=== PATIENT | female | born 1950 | race Caucasian/White ===

== ENCOUNTER 2016-12-18 11:27 | Emergency (ER) | payer MEDICARE, OTHER ==
[~2016-12-18] VITALS: Ht 170.2 cm; Wt 72.7 kg
[~2016-12-18 11:27] MED LIST: ADV250 IH; ARIP10TA16 PO; ATOR20TA65 PO; DSS100 PO; HYDR25TA PO; LEVO25TA9 PO; LOSA50TA37 PO; METO50 PO; OLAN5TAB27 PO; OMEP20 PO; QUET200T PO; RISP2 PO
[2016-12-18] MEDS ORDERED: CARB200T6 PO (12:05)
[2016-12-18] MEDS ORDERED: PROP10 PO (12:05)
[2016-12-18] MEDS ORDERED: HYDR-4031 PO (12:05)
[2016-12-18] MEDS ORDERED: TRAM50TA4 PO (12:05)
[2016-12-18] MEDS ORDERED: ASPI81 PO (12:11)
[2016-12-18] MEDS ORDERED: DOCU250C91 PO (12:11)
[2016-12-18] MEDS ORDERED: ADV250 IH (12:11)
[2016-12-18] MEDS ORDERED: TIOT185 IH (12:11)
[2016-12-18] MEDS ORDERED: BUPR-93 PO (12:11)
[2016-12-18] MEDS ORDERED: NITROGLYCERIN 2% (1 GM=INCH) PACKET TP ONE (13:00)
[2016-12-18] MEDS ORDERED: ASPIRIN 81 MG CHEWABLE TABLET PO ONE (13:00)
[2016-12-18 13:32] LABS: BASOPHILS % (AUTO) 0.5 % (0.0-2.0); EOSINOPHILS % (AUTO) 5.7 % (1.0-6.0); HEMATOCRIT 42.8 % (36-46); LYMPHOCYTES # (AUTO) 2.8 K/uL (1.0-4.8); LYMPHOCYTES % (AUTO) 30.6 % (22.0-44.0); MEAN CORPUSCULAR HEMOGLOBIN 28.6 pg (26.0-34.0); MEAN CORPUSCULAR HGB CONC 32.7 G/dL (31.0-37.0); MEAN CORPUSCULAR VOLUME 88 fL (80-100); MONOCYTES # (AUTO) 0.7 K/uL (0.1-1.0); MONOCYTES % (AUTO) 8.2 % (2.0-9.0); PLATELET COUNT (AUTO) 236 K/uL (150-450); RED BLOOD CELL COUNT(AUTO) 4.89 MIL/uL (4.00-5.20); RED CELL DISTRIBUTION WIDTH 12.3 % (11.5-14.5)
[2016-12-18 13:39] LABS: CALCIUM, TOTAL 9.2 mg/dL (8.8-10.5); CREATININE 1.41 mg/dL (0.60-1.30)
[2016-12-18 13:45] LABS: ALBUMIN 3.5 g/dL (3.4-5.0); BILIRUBIN,TOTAL 0.2 mg/dL (0.1-1.0)
[2016-12-18] MEDS ORDERED: ALBUTEROL SULFATE 2.5 MG/0.5 ML NEB SOLUTION NEB ONE (14:00)
[2016-12-18] MEDS ORDERED: PredniSONE 20 MG TABLET PO ONE (14:00)
[2016-12-18] MEDS ORDERED: IPRATROPIUM BROMIDE 0.5 MG/2.5 ML NEB SOLUTION NEB ONE (14:00)
[2016-12-18 14:43] VITALS: BP 107/76
== END 2016-12-18 15:09 | disposition home or self-care (01) ==
LOC: EMS 11:33
DX: J44.9 Chronic obstructive pulmonary disease, unspecified (principal); I10 Essential (primary) hypertension; F17.210 Nicotine dependence, cigarettes, uncomplicated; Z79.82 Long term (current) use of aspirin; Z88.1 Allergy status to other antibiotic agents
CPT/HCPCS: 36415; 71010; 80053; 84484; 85025; 93005; 94640; 99285; J7512

== ENCOUNTER 2017-02-03 13:48 | Inpatient (IN) | payer MEDICARE, MEDICAID ==
[~2017-02-03] VITALS: Ht 170.2 cm; Wt 76.6 kg
[~2017-02-03 13:48] MED LIST changes: +ASPI81 PO; +BUPR-93 PO; +CARB200T6 PO; +DOCU250C91 PO; +HYDR-4031 PO; +PROP10 PO; +TIOT185 IH; +TRAM50TA4 PO
[2017-02-03] MEDS ORDERED: QUEtiapine FUMARATE 100 MG TABLET PO PRN (14:30)
[2017-02-03] MEDS ORDERED: HydrOXYzine PAMOATE 50 MG CAPSULE PO PRN (14:30)
[2017-02-03] MEDS ORDERED: MAG HYDROX/AL HYDROX/SIMETH ES 30 ML SUSPENSION UDCUP PO PRN (14:30)
[2017-02-03] MEDS ORDERED: TUBERCULIN, PURIFIED PROTEIN DERIVATIVE 5 TU/0.1 ML SYG ID ONE (14:30)
[2017-02-03] MEDS ORDERED: LORazepam 2 MG TABLET PO PRN (14:30)
[2017-02-03] MEDS ORDERED: PROMETHAZINE HCL 25 MG TABLET PO PRN (14:30)
[2017-02-03] MEDS ORDERED: ACETAMINOPHEN 325 MG TABLET PO PRN (14:30)
[2017-02-03] MEDS ORDERED: MAGNESIUM HYDROXIDE SUSPENSION 30 ML UDCUP PO PRN (14:30)
[2017-02-03] MEDS ORDERED: LOPERAMIDE HCL 2 MG CAPSULE PO PRN (14:30)
[2017-02-03] MEDS ORDERED: GuaiFENesin/D-METHORPHAN [SUGAR-FREE] 200-20MG/10 ML SYRUP UDCUP PO PRN (14:30)
[2017-02-03] MEDS ORDERED: ZOLPIDEM TARTRATE 10 MG TABLET PO PRN (14:30)
[2017-02-03 14:55] VITALS: BP 128/82
[2017-02-03] MEDS: PROPRANOLOL HCL 10 MG TABLET PO SCH ×3 (14:56→17:16)
[2017-02-03] MEDS: THIAMINE HCL 100 MG TABLET PO SCH (16:23)
[2017-02-03 16:29] VITALS: BP 117/90
[2017-02-03] MEDS ORDERED: ALBUTEROL SULFATE HFA 90 MCG/PUFF 8 GM INHALER IH PRN (18:45)
[2017-02-03] MEDS ORDERED: DENTURE ADHESIVE 68 GM CREAM DT PRN (18:45)
[2017-02-03] MEDS: NICOTINE 21 MG/24 HOUR PATCH TD SCH (20:03)
[2017-02-03 20:20] VITALS: BP 106/86
[2017-02-03] MEDS: QUEtiapine FUMARATE 300 MG TABLET PO SCH (20:20)
[2017-02-03] MEDS: TraMADol HCL 50 MG TABLET PO PRN (20:20)
[2017-02-04 04:29] VITALS: BP 107/65
[2017-02-04 08:25] LABS: BASOPHILS # (AUTO) 0.02 K/uL (0.00-0.20); BASOPHILS % (AUTO) 0.4 % (0.0-2.0); EOSINOPHILS # (AUTO) 0.43 K/uL (0.00-0.70); EOSINOPHILS % (AUTO) 7.38 % (1.0-6.0); HEMATOCRIT 42.8 % (36-46); HEMOGLOBIN 14.3 g/dL (12.0-16.0); LYMPHOCYTES # (AUTO) 1.4 K/uL (1.0-4.8); LYMPHOCYTES % (AUTO) 23.1 % (22.0-44.0); MEAN CORPUSCULAR HEMOGLOBIN 29.3 pg (26.0-34.0); MEAN CORPUSCULAR HGB CONC 33.4 G/dL (31.0-37.0); MEAN CORPUSCULAR VOLUME 88 fL (80-100); MONOCYTES # (AUTO) 0.6 K/uL (0.1-1.0); MONOCYTES % (AUTO) 10.4 % (2.0-9.0); NEUTROPHILS # (AUTO) 3.4 K/uL (1.8-7.7); NEUTROPHILS % (AUTO) 58.7 % (40.0-70.0); PLATELET COUNT (AUTO) 209 K/uL (150-450); RED BLOOD CELL COUNT(AUTO) 4.87 MIL/uL (4.00-5.20); RED CELL DISTRIBUTION WIDTH 14.3 % (11.5-14.5); WHITE BLOOD COUNT (AUTO) 5.8 K/uL (4.5-11.0)
[2017-02-04 08:43] LABS: HEMOGLOBIN A1C 5.8 % (4.5-6.2)
[2017-02-04 08:46] LABS: ALBUMIN 3.5 g/dL (3.4-5.0); BILIRUBIN,TOTAL 0.2 mg/dL (0.1-1.0); CALCIUM, TOTAL 9.2 mg/dL (8.8-10.5); CHOL/HDL RATIO 2.7 (3.9-5.7); CREATININE 1.35 mg/dL (0.60-1.30); THYROID STIMULATING HORMONE 4.63 uIU/mL (0.36-3.74); TOTAL PROTEIN, SERUM 7.1 g/dL (6.4-8.2)
[2017-02-04 08:51] VITALS: BP 101/63
[2017-02-04] MEDS: PARoxetine HCL 20 MG TABLET PO SCH (09:40)
[2017-02-04] MEDS: METOPROLOL TARTRATE 50 MG TABLET PO SCH (09:40)
[2017-02-04] MEDS: MULTIVITAMINS WITH MINERALS, THERAPEUTIC TABLET PO SCH (09:40)
[2017-02-04] MEDS: PROPRANOLOL HCL 10 MG TABLET PO SCH ×3 (09:40→17:30)
[2017-02-04] MEDS: OMEPRAZOLE 20 MG CAPSULE PO SCH (09:40)
[2017-02-04] MEDS: DOCUSATE SODIUM 100 MG CAPSULE PO SCH ×2 (09:40→17:30)
[2017-02-04] MEDS: FOLIC ACID 1 MG TABLET PO SCH (09:40)
[2017-02-04] MEDS: FLUTICASONE/VILANTEROL 200-25 MCG/INH INHALER [14] IH SCH ×2 (09:41→17:29)
[2017-02-04] MEDS: THIAMINE HCL 100 MG TABLET PO SCH ×2 (09:47→17:30)
[2017-02-04] MEDS: NICOTINE 21 MG/24 HOUR PATCH TD SCH (09:47)
[2017-02-04] MEDS: TraMADol HCL 50 MG TABLET PO PRN ×2 (09:48→18:39)
[2017-02-04] MEDS: BuPROPion HCL XL 150 MG ER TABLET PO SCH (09:48)
[2017-02-04 16:00] VITALS: BP 112/67
[2017-02-04] MEDS ORDERED: POTASSIUM CHLORIDE 20 MEQ ER TABLET PO ONE (17:45)
[2017-02-04] MEDS: QUEtiapine FUMARATE 25 MG TABLET PO SCH (17:50)
[2017-02-04 18:39] VITALS: BP 116/68
[2017-02-04] MEDS: QUEtiapine FUMARATE 300 MG TABLET PO SCH (21:04)
[2017-02-05 05:47] VITALS: BP 100/56
[2017-02-05 08:15] VITALS: BP 109/62
[2017-02-05] MEDS: NICOTINE 21 MG/24 HOUR PATCH TD SCH (08:22)
[2017-02-05] MEDS: MULTIVITAMINS WITH MINERALS, THERAPEUTIC TABLET PO SCH (08:22)
[2017-02-05] MEDS: PARoxetine HCL 20 MG TABLET PO SCH (08:22)
[2017-02-05] MEDS: QUEtiapine FUMARATE 25 MG TABLET PO SCH ×3 (08:23→16:04)
[2017-02-05] MEDS: THIAMINE HCL 100 MG TABLET PO SCH ×2 (08:23→16:04)
[2017-02-05] MEDS: FOLIC ACID 1 MG TABLET PO SCH (08:23)
[2017-02-05] MEDS: FLUTICASONE/VILANTEROL 200-25 MCG/INH INHALER [14] IH SCH ×2 (08:23→16:05)
[2017-02-05] MEDS: DOCUSATE SODIUM 100 MG CAPSULE PO SCH ×2 (08:23→16:04)
[2017-02-05] MEDS: BuPROPion HCL XL 150 MG ER TABLET PO SCH (08:25)
[2017-02-05] MEDS: PROPRANOLOL HCL 10 MG TABLET PO SCH ×3 (08:25→16:05)
[2017-02-05] MEDS: METOPROLOL TARTRATE 50 MG TABLET PO SCH (08:25)
[2017-02-05] MEDS: OMEPRAZOLE 20 MG CAPSULE PO SCH (08:25)
[2017-02-05] MEDS: TraMADol HCL 50 MG TABLET PO PRN (10:15)
[2017-02-05] MEDS ORDERED: PARO20TA24 PO (11:44)
[2017-02-05] MEDS ORDERED: QUET300T18 PO (11:44)
[2017-02-05] MEDS ORDERED: PROP10 PO (11:44)
[2017-02-05] MEDS ORDERED: BUPR-47 PO (11:44)
[2017-02-05] MEDS ORDERED: QUET25TA34 PO (11:44)
[2017-02-05 13:47] VITALS: BP 126/76
[2017-02-05 16:02] VITALS: BP 112/69
[2017-02-05] MEDS ORDERED: QUEtiapine FUMARATE 200 MG TABLET PO SCH (21:00)
[2017-02-06 00:02] VITALS: BP 108/63
[2017-02-06] MEDS ORDERED: DSS100 PO (08:19)
[2017-02-06] MEDS ORDERED: FLUT1BLS PO (08:19)
[2017-02-06 08:20] VITALS: BP 124/71
[2017-02-06] MEDS: FLUTICASONE/VILANTEROL 200-25 MCG/INH INHALER [14] IH SCH (08:21)
[2017-02-06] MEDS: BuPROPion HCL XL 150 MG ER TABLET PO SCH (08:21)
[2017-02-06] MEDS: FOLIC ACID 1 MG TABLET PO SCH (08:22)
[2017-02-06] MEDS: OMEPRAZOLE 20 MG CAPSULE PO SCH (08:22)
[2017-02-06] MEDS: MULTIVITAMINS WITH MINERALS, THERAPEUTIC TABLET PO SCH (08:22)
[2017-02-06] MEDS: PROPRANOLOL HCL 10 MG TABLET PO SCH (08:22)
[2017-02-06] MEDS: METOPROLOL TARTRATE 50 MG TABLET PO SCH (08:22)
[2017-02-06] MEDS: THIAMINE HCL 100 MG TABLET PO SCH (08:22)
[2017-02-06] MEDS: DOCUSATE SODIUM 100 MG CAPSULE PO SCH (08:22)
[2017-02-06] MEDS: QUEtiapine FUMARATE 25 MG TABLET PO SCH (08:23)
[2017-02-06] MEDS: PARoxetine HCL 20 MG TABLET PO SCH (08:23)
[2017-02-06] MEDS: NICOTINE 21 MG/24 HOUR PATCH TD SCH (08:23)
== END 2017-02-06 10:05 | disposition home or self-care (01) | DRG 885 ==
LOC: B2S 14:52
PROVIDERS: ADMIT Psychiatry & Neurology Psychiatry; ATTEND Psychiatry & Neurology Psychiatry
DX: F25.9 Schizoaffective disorder, unspecified (principal); R45.851 Suicidal ideations; F17.210 Nicotine dependence, cigarettes, uncomplicated; M19.90 Unspecified osteoarthritis, unspecified site; N18.9 Chronic kidney disease, unspecified; I12.9 Hypertensive chronic kidney disease with stage 1 through stage 4 chronic kidney disease, or unspecified chronic kidney disease; K59.00 Constipation, unspecified; K21.9 Gastro-esophageal reflux disease without esophagitis; E78.5 Hyperlipidemia, unspecified; E03.9 Hypothyroidism, unspecified; R45.850 Homicidal ideations; J44.9 Chronic obstructive pulmonary disease, unspecified; E87.6 Hypokalemia; F12.20 Cannabis dependence, uncomplicated; F32.9 Major depressive disorder, single episode, unspecified; Z88.1 Allergy status to other antibiotic agents; Z65.3 Problems related to other legal circumstances; Z91.19 Patient's noncompliance with other medical treatment and regimen
CPT/HCPCS: 83036; 84132; 84439; 84443; 86592; 87081

== ENCOUNTER 2017-03-10 13:57 | Inpatient (IN) | payer MEDICARE, OTHER ==
[~2017-03-10] VITALS: Ht 170.2 cm; Wt 78.4 kg
[~2017-03-10 13:57] MED LIST changes: -ADV250 IH; -ARIP10TA16 PO; -ASPI81 PO; -ATOR20TA65 PO; +BUPR-47 PO; -BUPR-93 PO; -CARB200T6 PO; -DOCU250C91 PO; +FLUT1BLS PO; -HYDR-4031 PO; -HYDR25TA PO; -LEVO25TA9 PO; -LOSA50TA37 PO; -OLAN5TAB27 PO; +PARO20TA24 PO; -QUET200T PO; +QUET25TA34 PO; +QUET300T18 PO; -RISP2 PO; -TIOT185 IH; -TRAM50TA4 PO
[2017-03-10] MEDS ORDERED: FLUT1BLS PO (14:02)
[2017-03-10] MEDS ORDERED: BUPR-93 PO (14:02)
[2017-03-10] MEDS ORDERED: ROPI1TAB11 PO (14:02)
[2017-03-10] MEDS ORDERED: QUET200T PO (14:04)
[2017-03-10] MEDS ORDERED: QUET100T PO (14:04)
[2017-03-10] MEDS ORDERED: CARB100 PO (14:04)
[2017-03-10 14:25] LABS: BASOPHILS % (AUTO) 0.3 % (0.0-2.0); EOSINOPHILS % (AUTO) 7.3 % (1.0-6.0); HEMATOCRIT 39.9 % (36-46); LYMPHOCYTES # (AUTO) 1.8 K/uL (1.0-4.8); LYMPHOCYTES % (AUTO) 21.7 % (22.0-44.0); MEAN CORPUSCULAR HEMOGLOBIN 28.8 pg (26.0-34.0); MEAN CORPUSCULAR HGB CONC 32.5 G/dL (31.0-37.0); MEAN CORPUSCULAR VOLUME 89 fL (80-100); MONOCYTES # (AUTO) 0.6 K/uL (0.1-1.0); MONOCYTES % (AUTO) 7.4 % (2.0-9.0); NEUTROPHILS # (AUTO) 5.2 K/uL (1.8-7.7); NEUTROPHILS % (AUTO) 63.3 % (40.0-70.0); PLATELET COUNT (AUTO) 194 K/uL (150-450); RED CELL DISTRIBUTION WIDTH 13.7 % (11.5-14.5); WHITE BLOOD COUNT (AUTO) 8.2 K/uL (4.5-11.0)
[2017-03-10 14:35] LABS: PROTHROMBIN TIME 10.5 SEC (9.4-11.6)
[2017-03-10 14:40] LABS: ALANINE AMINOTRANSFERASE 30 U/L (12-78); ALBUMIN 3.1 g/dL (3.4-5.0); ANION GAP 10 mmol/L (8-16); ASPARTATE AMINOTRANSFERASE 18 U/L (15-37); BILIRUBIN,TOTAL 0.3 mg/dL (0.1-1.0); CALCIUM, TOTAL 8.5 mg/dL (8.8-10.5); CARBON DIOXIDE 26 mmol/L (22-29); CHLORIDE 104 mmol/L (98-107); CREATINE KINASE, TOTAL 42 U/L (26-192); CREATININE 1.58 mg/dL (0.60-1.30); GLOMERULAR FILTR. RATE CALC 33 mL/min (>60); SODIUM SERUM 140 mmol/L (136-145); TOTAL PROTEIN, SERUM 6.5 g/dL (6.4-8.2); UREA NITROGEN, BLOOD 54 mg/dL (7-18)
[2017-03-10 14:41] LABS: AMMONIA 20 umol/L (11-32)
[2017-03-10 14:42] LABS: POTASSIUM 2.7 mmol/L (3.5-5.1); TROPONIN I < 0.02 ng/mL (0.00-0.05)
[2017-03-10] MEDS ORDERED: POTASSIUM CHLORIDE 20 MEQ ER TABLET PO ONE (14:45)
[2017-03-10] MEDS: POTASSIUM CHL 10 MEQ/WATER 50 ML IV SCH ×2 (14:56→19:20)
[2017-03-10] MEDS ORDERED: SODIUM CHLORIDE 0.9% 1,000 ML IV ONE (15:45)
[2017-03-10] MEDS ORDERED: 0.9% SODIUM CHLORIDE 10 ML SYRINGE IVP PRN (16:45)
[2017-03-10] MEDS ORDERED: ACETAMINOPHEN 325 MG TABLET PO PRN (16:45)
[2017-03-10] MEDS ORDERED: ONDANSETRON HCL 4 MG/2 ML VIAL IVP PRN (16:45)
[2017-03-10 17:45] VITALS: BP 126/64
[2017-03-10] MEDS ORDERED: QUET400T3 PO (17:49)
[2017-03-10 19:24] VITALS: BP 108/57
[2017-03-10] MEDS ORDERED: POTASSIUM CHL 10 MEQ/WATER 50 ML IV ONE (21:00)
[2017-03-10 23:37] VITALS: BP 113/65
[2017-03-11] MEDS ORDERED: MORPHINE SULFATE 2 MG/ML SYRINGE IVP PRN
[2017-03-11] MEDS ORDERED: ONDANSETRON HCL 4 MG/2 ML VIAL IVP PRN
[2017-03-11] MEDS ORDERED: ZOLPIDEM TARTRATE 5 MG TABLET PO PRN
[2017-03-11] MEDS ORDERED: MAGNESIUM HYDROXIDE SUSPENSION 30 ML UDCUP PO PRN
[2017-03-11] MEDS ORDERED: BISACODYL 10 MG RECTAL RECTAL SUPPOSITORY PR PRN
[2017-03-11] MEDS ORDERED: ACETAMINOPHEN 325 MG TABLET PO PRN
[2017-03-11] MEDS ORDERED: HYDROCODONE/ACETAMINOPHEN 5-325 MG TABLET PO PRN
[2017-03-11] MEDS ORDERED: IPRATROPIUM BROMIDE 0.5 MG/2.5 ML NEB SOLUTION NEB PRN
[2017-03-11] MEDS ORDERED: ALBUTEROL SULFATE 2.5 MG/0.5 ML NEB SOLUTION NEB PRN
[2017-03-11] MEDS: HEPARIN SODIUM,PORCINE 5,000 UNITS/ML VIAL SQ SCH ×2 (00:29→09:39)
[2017-03-11] MEDS ORDERED: MAGNESIUM SULFATE 2 GM in DEXTROSE 5%-WATER 50 ML IV PRN (00:30)
[2017-03-11] MEDS ORDERED: MAGNESIUM OXIDE 400 MG TABLET PO PRN (00:30)
[2017-03-11] MEDS ORDERED: POTASSIUM CHL 10 MEQ/WATER 50 ML IV PRN (00:30)
[2017-03-11] MEDS ORDERED: POTASSIUM CHLORIDE 20 MEQ ER TABLET PO PRN (00:30)
[2017-03-11] MEDS ORDERED: MAGNESIUM SULFATE 4 GM/WATER 100 ML IV PRN (00:30)
[2017-03-11 04:17] VITALS: BP 117/66
[2017-03-11 05:26] LABS: APPEARANCE,URINE CLOUDY (CLEAR); GLUCOSE, URINE (UA) NEGATIVE (NEGATIVE); KETONES,URINE NEGATIVE (NEGATIVE); LEUKOCYTE ESTERASE ,URINE TRACE (NEGATIVE); OCCULT BLOOD,URINE NEGATIVE (NEGATIVE); PROTEIN,URINE NEGATIVE (NEGATIVE)
[2017-03-11 05:29] LABS: ADD UA MICROSCOPIC YES
[2017-03-11 05:36] LABS: RBC,URINE 0-2 /HPF (0-2)
[2017-03-11 05:37] LABS: SQUAMOUS EPITHELIAL CELL,UR Few /LPF (None Seen)
[2017-03-11 06:58] LABS: BASOPHILS # (AUTO) 0.02 K/uL (0.00-0.20); BASOPHILS % (AUTO) 0.4 % (0.0-2.0); EOSINOPHILS # (AUTO) 0.51 K/uL (0.00-0.70); EOSINOPHILS % (AUTO) 9.06 % (1.0-6.0); HEMATOCRIT 38.9 % (36-46); HEMOGLOBIN 12.8 g/dL (12.0-16.0); LYMPHOCYTES # (AUTO) 1.5 K/uL (1.0-4.8); MEAN CORPUSCULAR HEMOGLOBIN 29.5 pg (26.0-34.0); MEAN CORPUSCULAR HGB CONC 33.1 G/dL (31.0-37.0); MEAN CORPUSCULAR VOLUME 89 fL (80-100); MONOCYTES # (AUTO) 0.4 K/uL (0.1-1.0); MONOCYTES % (AUTO) 7.4 % (2.0-9.0); NEUTROPHILS # (AUTO) 3.2 K/uL (1.8-7.7); NEUTROPHILS % (AUTO) 57.2 % (40.0-70.0); PLATELET COUNT (AUTO) 162 K/uL (150-450); RED BLOOD CELL COUNT(AUTO) 4.35 MIL/uL (4.00-5.20); WHITE BLOOD COUNT (AUTO) 5.6 K/uL (4.5-11.0)
[2017-03-11 07:40] VITALS: BP 106/75
[2017-03-11 07:45] LABS: BILIRUBIN,TOTAL 0.3 mg/dL (0.1-1.0); CALCIUM, TOTAL 8.7 mg/dL (8.8-10.5); CREATININE 1.34 mg/dL (0.60-1.30); POTASSIUM 4.2 mmol/L (3.5-5.1); TOTAL PROTEIN, SERUM 5.7 g/dL (6.4-8.2)
[2017-03-11] MEDS ORDERED: ROPINIRole HCL 1 MG TABLET PO SCH (09:00)
[2017-03-11] MEDS ORDERED: QUEtiapine FUMARATE 25 MG TABLET PO SCH (09:00)
[2017-03-11] MEDS ORDERED: PARoxetine HCL 20 MG TABLET PO SCH (09:00)
[2017-03-11] MEDS ORDERED: METOPROLOL TARTRATE 50 MG TABLET PO SCH (09:00)
[2017-03-11] MEDS ORDERED: ASPIRIN 81 MG EC TABLET PO SCH (09:00)
[2017-03-11] MEDS ORDERED: PANTOPRAZOLE SODIUM 40 MG/VIAL IVP SCH (09:00)
[2017-03-11] MEDS ORDERED: CarBAMazepine 100 MG CHEWABLE TABLET PO SCH (09:00)
[2017-03-11] MEDS ORDERED: FLUTICASONE/VILANTEROL 200-25 MCG/INH INHALER [14] IH SCH (09:00)
[2017-03-11] MEDS ORDERED: BuPROPion HCL XL 150 MG ER TABLET PO SCH (09:00)
[2017-03-11] MEDS ORDERED: DOCUSATE SODIUM 100 MG CAPSULE PO SCH ×2 (09:00)
[2017-03-11] MEDS ORDERED: OMEPRAZOLE 20 MG CAPSULE PO SCH (09:00)
[2017-03-11] MEDS ORDERED: GADOBUTROL 1 MMOL/ML 10 ML VIAL IVP ONE (09:17)
[2017-03-11 11:33] VITALS: BP 124/78
[2017-03-11 15:10] VITALS: BP 122/76
[2017-03-11] MEDS ORDERED: QUEtiapine FUMARATE 200 MG ER TABLET PO SCH (21:00)
== END 2017-03-11 16:10 | disposition home or self-care (01) | DRG 641 ==
LOC: EMS 14:01 → 5S 16:21
PROVIDERS: ADMIT Hospitalist; ATTEND Hospitalist
DX: E87.6 Hypokalemia (principal); N17.9 Acute kidney failure, unspecified; F25.9 Schizoaffective disorder, unspecified; F31.9 Bipolar disorder, unspecified; E86.0 Dehydration; I10 Essential (primary) hypertension; E03.9 Hypothyroidism, unspecified; F17.210 Nicotine dependence, cigarettes, uncomplicated; J44.9 Chronic obstructive pulmonary disease, unspecified; Z90.49 Acquired absence of other specified parts of digestive tract; Z71.6 Tobacco abuse counseling; Z88.1 Allergy status to other antibiotic agents; Z79.01 Long term (current) use of anticoagulants; Z79.82 Long term (current) use of aspirin
CPT/HCPCS: 51701; 70450; 70544; 70553; 83735; 84100; 84132; 87086; 93005; 93306; 96360; 99285; A9585; C9113; J1644; J3480; J7030

== ENCOUNTER 2017-08-03 11:38 | Inpatient (IN) | payer MEDICARE, MEDICAID ==
[~2017-08-03] VITALS: Ht 170.2 cm; Wt 66.6 kg
[~2017-08-03 11:38] MED LIST changes: -BUPR-47 PO; +BUPR-93 PO; +CARB100 PO; -PARO20TA24 PO; -PROP10 PO; +QUET100T PO; -QUET25TA34 PO; -QUET300T18 PO; +QUET400T3 PO; +ROPI1TAB11 PO
[2017-08-03] MEDS ORDERED: HYDR25TA PO (12:35)
[2017-08-03] MEDS ORDERED: TIOT185 IH (12:35)
[2017-08-03] MEDS ORDERED: ATOR20TA86 PO (12:35)
[2017-08-03] MEDS ORDERED: PARO20TA24 PO (12:35)
[2017-08-03] MEDS ORDERED: VALB40CA PO (12:35)
[2017-08-03] MEDS ORDERED: PROP20 PO (12:35)
[2017-08-03] MEDS ORDERED: LEVO25TA9 PO (12:35)
[2017-08-03] MEDS ORDERED: TRIH2TAB3 PO (12:35)
[2017-08-03] MEDS ORDERED: TRAM50TA4 PO (12:35)
[2017-08-03] MEDS ORDERED: LOSA25TA2 PO (12:35)
[2017-08-03] MEDS ORDERED: ADV250 IH (12:35)
[2017-08-03] MEDS ORDERED: ASPI-1182 PO (12:35)
[2017-08-03] MEDS ORDERED: ACETAMINOPHEN 325 MG TABLET PO PRN ×3 (14:00→22:00)
[2017-08-03] MEDS ORDERED: HydrOXYzine PAMOATE 50 MG CAPSULE PO PRN (14:00)
[2017-08-03] MEDS ORDERED: MAG HYDROX/AL HYDROX/SIMETH ES 30 ML SUSPENSION UDCUP PO PRN (14:00)
[2017-08-03] MEDS ORDERED: MAGNESIUM HYDROXIDE SUSPENSION 30 ML UDCUP PO PRN (14:00)
[2017-08-03] MEDS ORDERED: QUEtiapine FUMARATE 100 MG TABLET PO PRN (14:00)
[2017-08-03] MEDS ORDERED: GuaiFENesin/D-METHORPHAN [SUGAR-FREE] 200-20MG/10 ML SYRUP UDCUP PO PRN (14:00)
[2017-08-03] MEDS ORDERED: ZOLPIDEM TARTRATE 10 MG TABLET PO PRN (14:00)
[2017-08-03] MEDS ORDERED: TUBERCULIN, PURIFIED PROTEIN DERIVATIVE 5 TU/0.1 ML SYG ID ONE (14:00)
[2017-08-03] MEDS ORDERED: LORazepam 2 MG TABLET PO PRN (14:00)
[2017-08-03] MEDS ORDERED: LOPERAMIDE HCL 2 MG CAPSULE PO PRN (14:00)
[2017-08-03 14:15] VITALS: BP 150/91
[2017-08-03] MEDS: PROPRANOLOL HCL 10 MG TABLET PO SCH ×2 (16:02→18:45)
[2017-08-03] MEDS: TRIHEXYPHENIDYL HCL 2 MG TABLET PO SCH (16:03)
[2017-08-03] MEDS: QUEtiapine FUMARATE 25 MG TABLET PO SCH ×2 (16:03→18:45)
[2017-08-03] MEDS: THIAMINE HCL 100 MG TABLET PO SCH (16:03)
[2017-08-03 16:15] VITALS: BP 153/82
[2017-08-03 18:00] VITALS: BP 133/93
[2017-08-03] MEDS ORDERED: IBUPROFEN 400 MG TABLET PO PRN ×2 (21:15→22:00)
[2017-08-03] MEDS: QUEtiapine FUMARATE 200 MG TABLET PO SCH (21:44)
[2017-08-03] MEDS: ROPINIRole HCL 1 MG TABLET PO SCH (21:54)
[2017-08-04 04:57] VITALS: BP 129/78
[2017-08-04] MEDS: LEVOTHYROXINE SODIUM 25 MCG TABLET PO SCH (06:38)
[2017-08-04 08:21] LABS: BASOPHILS % (AUTO) 0.5 % (0.0-2.0); EOSINOPHILS % (AUTO) 12.2 % (1.0-6.0); HEMATOCRIT 34.5 % (36-46); HEMOGLOBIN 11.6 g/dL (12.0-16.0); LYMPHOCYTES # (AUTO) 1.4 K/uL (1.0-4.8); LYMPHOCYTES % (AUTO) 20.8 % (22.0-44.0); MEAN CORPUSCULAR HEMOGLOBIN 30.3 pg (26.0-34.0); MEAN CORPUSCULAR HGB CONC 33.5 G/dL (31.0-37.0); MEAN CORPUSCULAR VOLUME 91 fL (80-100); MONOCYTES # (AUTO) 0.6 K/uL (0.1-1.0); MONOCYTES % (AUTO) 8.1 % (2.0-9.0); NEUTROPHILS % (AUTO) 58.4 % (40.0-70.0); PLATELET COUNT (AUTO) 281 K/uL (150-450); RED BLOOD CELL COUNT(AUTO) 3.81 MIL/uL (4.00-5.20); RED CELL DISTRIBUTION WIDTH 14.2 % (11.5-14.5); WHITE BLOOD COUNT (AUTO) 6.8 K/uL (4.5-11.0)
[2017-08-04 08:24] VITALS: BP 135/74
[2017-08-04 08:43] LABS: HEMOGLOBIN A1C 6.2 % (4.5-6.2)
[2017-08-04 08:55] LABS: ALBUMIN 3.2 g/dL (3.4-5.0); BILIRUBIN,TOTAL 0.4 mg/dL (0.1-1.0); CALCIUM, TOTAL 9.4 mg/dL (8.8-10.5); CHOL/HDL RATIO 2.8 (3.9-5.7); CREATININE 1.52 mg/dL (0.60-1.30); POTASSIUM 3.9 mmol/L (3.5-5.1); THYROID STIMULATING HORMONE 2.29 uIU/mL (0.36-3.74); TOTAL PROTEIN, SERUM 7.1 g/dL (6.4-8.2)
[2017-08-04] MEDS: PROPRANOLOL HCL 10 MG TABLET PO SCH ×3 (09:00→16:46)
[2017-08-04] MEDS: ROPINIRole HCL 1 MG TABLET PO SCH ×3 (09:00→17:00)
[2017-08-04] MEDS ORDERED: VALBENAZINE 40 MG PO SCH (09:00)
[2017-08-04] MEDS: FLUTICASONE/VILANTEROL 200-25 MCG/INH INHALER [14] IH SCH (10:01)
[2017-08-04] MEDS: PROMETHAZINE HCL 25 MG TABLET PO PRN (10:02)
[2017-08-04] MEDS: TRIHEXYPHENIDYL HCL 2 MG TABLET PO SCH ×2 (10:02→16:45)
[2017-08-04] MEDS: ASPIRIN 81 MG EC TABLET PO SCH (10:02)
[2017-08-04] MEDS: BuPROPion HCL XL 150 MG ER TABLET PO SCH (10:02)
[2017-08-04] MEDS: OMEPRAZOLE 20 MG CAPSULE PO SCH (10:02)
[2017-08-04] MEDS: DOCUSATE SODIUM 250 MG CAPSULE PO SCH ×2 (10:03→16:46)
[2017-08-04] MEDS: MULTIVITAMINS WITH MINERALS, THERAPEUTIC TABLET PO SCH (10:03)
[2017-08-04] MEDS: THIAMINE HCL 100 MG TABLET PO SCH ×2 (10:03→16:46)
[2017-08-04] MEDS: PARoxetine HCL 20 MG TABLET PO SCH (10:03)
[2017-08-04] MEDS: LOSARTAN POTASSIUM 50 MG TABLET PO SCH (10:03)
[2017-08-04] MEDS: METOPROLOL TARTRATE 50 MG TABLET PO SCH (10:04)
[2017-08-04] MEDS: ZINC OXIDE 16% PASTE 57 GM TUBE TP SCH ×2 (10:05→16:46)
[2017-08-04] MEDS: FOLIC ACID 1 MG TABLET PO SCH (10:16)
[2017-08-04] MEDS: QUEtiapine FUMARATE 25 MG TABLET PO SCH ×3 (10:16→16:46)
[2017-08-04] MEDS: NALTREXONE HCL 50 MG TABLET PO SCH (12:05)
[2017-08-04] MEDS: INGREZZA 40 MG PO SCH (12:05)
[2017-08-04 16:43] VITALS: BP 102/65
[2017-08-04] MEDS: ATORVASTATIN CALCIUM 20 MG TABLET PO SCH (20:18)
[2017-08-04] MEDS: QUEtiapine FUMARATE 200 MG TABLET PO SCH (20:18)
[2017-08-05 05:30] VITALS: BP 113/60
[2017-08-05] MEDS: LEVOTHYROXINE SODIUM 25 MCG TABLET PO SCH (07:02)
[2017-08-05] MEDS: FLUTICASONE/VILANTEROL 200-25 MCG/INH INHALER [14] IH SCH (08:32)
[2017-08-05] MEDS: NALTREXONE HCL 50 MG TABLET PO SCH (08:33)
[2017-08-05] MEDS: METOPROLOL TARTRATE 50 MG TABLET PO SCH (08:33)
[2017-08-05] MEDS: PARoxetine HCL 20 MG TABLET PO SCH (08:33)
[2017-08-05] MEDS: DOCUSATE SODIUM 250 MG CAPSULE PO SCH ×2 (08:34→16:12)
[2017-08-05] MEDS: FOLIC ACID 1 MG TABLET PO SCH (08:34)
[2017-08-05] MEDS: OMEPRAZOLE 20 MG CAPSULE PO SCH (08:34)
[2017-08-05] MEDS: BuPROPion HCL XL 150 MG ER TABLET PO SCH (08:36)
[2017-08-05] MEDS: ASPIRIN 81 MG EC TABLET PO SCH (08:36)
[2017-08-05] MEDS: TRIHEXYPHENIDYL HCL 2 MG TABLET PO SCH ×2 (08:36→16:10)
[2017-08-05] MEDS: QUEtiapine FUMARATE 25 MG TABLET PO SCH ×3 (08:36→16:10)
[2017-08-05 08:37] VITALS: BP 121/61
[2017-08-05] MEDS: MULTIVITAMINS WITH MINERALS, THERAPEUTIC TABLET PO SCH (08:37)
[2017-08-05] MEDS: LOSARTAN POTASSIUM 50 MG TABLET PO SCH (08:37)
[2017-08-05] MEDS: ROPINIRole HCL 1 MG TABLET PO SCH ×3 (08:37→16:10)
[2017-08-05] MEDS: PROPRANOLOL HCL 10 MG TABLET PO SCH ×3 (08:37→16:10)
[2017-08-05] MEDS: INGREZZA 40 MG PO SCH (08:38)
[2017-08-05] MEDS: THIAMINE HCL 100 MG TABLET PO SCH ×2 (08:41→16:10)
[2017-08-05] MEDS: ZINC OXIDE 16% PASTE 57 GM TUBE TP SCH ×2 (08:43→16:12)
[2017-08-05 16:34] VITALS: BP 121/63
[2017-08-05] MEDS: QUEtiapine FUMARATE 200 MG TABLET PO SCH (20:16)
[2017-08-05] MEDS: ATORVASTATIN CALCIUM 20 MG TABLET PO SCH (20:16)
[2017-08-06 05:20] VITALS: BP 103/63
[2017-08-06] MEDS: LEVOTHYROXINE SODIUM 25 MCG TABLET PO SCH (06:38)
[2017-08-06] MEDS: OMEPRAZOLE 20 MG CAPSULE PO SCH (08:02)
[2017-08-06] MEDS: PROPRANOLOL HCL 10 MG TABLET PO SCH ×3 (08:02→16:48)
[2017-08-06] MEDS: PARoxetine HCL 20 MG TABLET PO SCH (08:02)
[2017-08-06] MEDS: LOSARTAN POTASSIUM 50 MG TABLET PO SCH (08:02)
[2017-08-06] MEDS: MULTIVITAMINS WITH MINERALS, THERAPEUTIC TABLET PO SCH (08:02)
[2017-08-06] MEDS: QUEtiapine FUMARATE 25 MG TABLET PO SCH ×3 (08:02→16:48)
[2017-08-06] MEDS: INGREZZA 40 MG PO SCH (08:02)
[2017-08-06] MEDS: FOLIC ACID 1 MG TABLET PO SCH (08:02)
[2017-08-06] MEDS: THIAMINE HCL 100 MG TABLET PO SCH ×2 (08:02→16:48)
[2017-08-06] MEDS: FLUTICASONE/VILANTEROL 200-25 MCG/INH INHALER [14] IH SCH (08:02)
[2017-08-06] MEDS: ASPIRIN 81 MG EC TABLET PO SCH (08:02)
[2017-08-06] MEDS: DOCUSATE SODIUM 250 MG CAPSULE PO SCH ×2 (08:03→16:48)
[2017-08-06] MEDS: NALTREXONE HCL 50 MG TABLET PO SCH (08:03)
[2017-08-06] MEDS: METOPROLOL TARTRATE 50 MG TABLET PO SCH (08:03)
[2017-08-06] MEDS: TRIHEXYPHENIDYL HCL 2 MG TABLET PO SCH ×2 (08:03→16:48)
[2017-08-06] MEDS: ROPINIRole HCL 1 MG TABLET PO SCH ×3 (08:03→16:48)
[2017-08-06] MEDS: ZINC OXIDE 16% PASTE 57 GM TUBE TP SCH ×2 (08:03→16:49)
[2017-08-06] MEDS: BuPROPion HCL XL 150 MG ER TABLET PO SCH (08:03)
[2017-08-06 08:50] VITALS: BP 116/68
[2017-08-06] MEDS ORDERED: NALT50TA PO (15:16)
[2017-08-06] MEDS ORDERED: QUET25TA34 PO (15:16)
[2017-08-06] MEDS ORDERED: BUPR-47 PO (15:16)
[2017-08-06] MEDS ORDERED: TRIH2TAB3 PO (15:16)
[2017-08-06] MEDS ORDERED: QUET200T29 PO (15:16)
[2017-08-06] MEDS ORDERED: PROP10TA72 PO (15:16)
[2017-08-06] MEDS ORDERED: PARO-37 PO (15:16)
[2017-08-06] MEDS ORDERED: ROPI1TAB38 PO (15:16)
[2017-08-06 16:36] VITALS: BP 108/61
[2017-08-06] MEDS: ATORVASTATIN CALCIUM 20 MG TABLET PO SCH (20:27)
[2017-08-06] MEDS: QUEtiapine FUMARATE 200 MG TABLET PO SCH (20:28)
[2017-08-07 05:34] VITALS: BP 119/68
[2017-08-07] MEDS: LEVOTHYROXINE SODIUM 25 MCG TABLET PO SCH (06:20)
[2017-08-07] MEDS: FLUTICASONE/VILANTEROL 200-25 MCG/INH INHALER [14] IH SCH (08:15)
[2017-08-07 08:18] VITALS: BP 120/66
[2017-08-07] MEDS: ROPINIRole HCL 1 MG TABLET PO SCH ×3 (08:18→16:04)
[2017-08-07] MEDS: QUEtiapine FUMARATE 25 MG TABLET PO SCH ×3 (08:18→16:04)
[2017-08-07] MEDS: DOCUSATE SODIUM 250 MG CAPSULE PO SCH ×2 (08:18→16:04)
[2017-08-07] MEDS: METOPROLOL TARTRATE 50 MG TABLET PO SCH (08:18)
[2017-08-07] MEDS: TRIHEXYPHENIDYL HCL 2 MG TABLET PO SCH ×2 (08:18→16:04)
[2017-08-07] MEDS: ASPIRIN 81 MG EC TABLET PO SCH (08:19)
[2017-08-07] MEDS: PARoxetine HCL 20 MG TABLET PO SCH (08:19)
[2017-08-07] MEDS: MULTIVITAMINS WITH MINERALS, THERAPEUTIC TABLET PO SCH (08:19)
[2017-08-07] MEDS: LOSARTAN POTASSIUM 50 MG TABLET PO SCH (08:20)
[2017-08-07] MEDS: INGREZZA 40 MG PO SCH (08:20)
[2017-08-07] MEDS: FOLIC ACID 1 MG TABLET PO SCH (08:20)
[2017-08-07] MEDS: THIAMINE HCL 100 MG TABLET PO SCH ×2 (08:20→16:04)
[2017-08-07] MEDS: BuPROPion HCL XL 150 MG ER TABLET PO SCH (08:20)
[2017-08-07] MEDS: OMEPRAZOLE 20 MG CAPSULE PO SCH (08:20)
[2017-08-07] MEDS: NALTREXONE HCL 50 MG TABLET PO SCH (08:20)
[2017-08-07] MEDS: ZINC OXIDE 16% PASTE 57 GM TUBE TP SCH ×2 (08:21→16:04)
[2017-08-07] MEDS: PROPRANOLOL HCL 10 MG TABLET PO SCH ×3 (08:26→17:00)
[2017-08-07] MEDS ORDERED: QUET25TA PO (09:42)
[2017-08-07] MEDS ORDERED: FLUT1BLS IH (09:42)
[2017-08-07] MEDS ORDERED: THIA100 PO (09:42)
[2017-08-07] MEDS ORDERED: FOLI1 PO (09:42)
[2017-08-07] MEDS ORDERED: MULT-248 PO (09:42)
[2017-08-07] MEDS ORDERED: QUET200T PO (09:42)
[2017-08-07] MEDS ORDERED: NALT50TA6 PO (09:42)
[2017-08-07 16:39] VITALS: BP 100/61
[2017-08-07] MEDS: QUEtiapine FUMARATE 200 MG TABLET PO SCH (20:06)
[2017-08-07] MEDS: ATORVASTATIN CALCIUM 20 MG TABLET PO SCH (20:07)
[2017-08-08 01:51] VITALS: BP 105/67
[2017-08-08] MEDS: LEVOTHYROXINE SODIUM 25 MCG TABLET PO SCH (06:19)
[2017-08-08 08:51] VITALS: BP 108/60
[2017-08-08] MEDS: TRIHEXYPHENIDYL HCL 2 MG TABLET PO SCH ×2 (08:52→16:15)
[2017-08-08] MEDS: THIAMINE HCL 100 MG TABLET PO SCH ×2 (08:53→16:18)
[2017-08-08] MEDS: MULTIVITAMINS WITH MINERALS, THERAPEUTIC TABLET PO SCH (08:53)
[2017-08-08] MEDS: FOLIC ACID 1 MG TABLET PO SCH (08:53)
[2017-08-08] MEDS: QUEtiapine FUMARATE 25 MG TABLET PO SCH ×3 (08:53→16:15)
[2017-08-08] MEDS: PARoxetine HCL 20 MG TABLET PO SCH (08:53)
[2017-08-08] MEDS: DOCUSATE SODIUM 250 MG CAPSULE PO SCH ×2 (08:53→16:15)
[2017-08-08] MEDS: BuPROPion HCL XL 150 MG ER TABLET PO SCH (08:53)
[2017-08-08] MEDS: LOSARTAN POTASSIUM 50 MG TABLET PO SCH (08:54)
[2017-08-08] MEDS: METOPROLOL TARTRATE 50 MG TABLET PO SCH (08:54)
[2017-08-08] MEDS: ROPINIRole HCL 1 MG TABLET PO SCH ×3 (08:54→16:15)
[2017-08-08] MEDS: FLUTICASONE/VILANTEROL 200-25 MCG/INH INHALER [14] IH SCH (08:57)
[2017-08-08] MEDS: OMEPRAZOLE 20 MG CAPSULE PO SCH (08:57)
[2017-08-08] MEDS: PROPRANOLOL HCL 10 MG TABLET PO SCH ×3 (09:02→17:00)
[2017-08-08] MEDS: NALTREXONE HCL 50 MG TABLET PO SCH (09:02)
[2017-08-08] MEDS: ZINC OXIDE 16% PASTE 57 GM TUBE TP SCH ×2 (09:03→16:18)
[2017-08-08] MEDS: INGREZZA 40 MG PO SCH (09:03)
[2017-08-08] MEDS: ASPIRIN 81 MG EC TABLET PO SCH (09:44)
[2017-08-08 16:18] VITALS: BP 101/60
[2017-08-08 17:30] VITALS: BP 109/60
[2017-08-08] MEDS: QUEtiapine FUMARATE 200 MG TABLET PO SCH (20:14)
[2017-08-08] MEDS: ATORVASTATIN CALCIUM 20 MG TABLET PO SCH (20:14)
[2017-08-09 00:13] VITALS: BP 121/75
[2017-08-09] MEDS: LEVOTHYROXINE SODIUM 25 MCG TABLET PO SCH (05:53)
[2017-08-09 07:43] LABS: CALCIUM, TOTAL 9.2 mg/dL (8.8-10.5); CREATININE 1.59 mg/dL (0.60-1.30)
[2017-08-09 08:37] VITALS: BP 117/60
[2017-08-09] MEDS: LOSARTAN POTASSIUM 50 MG TABLET PO SCH (09:09)
[2017-08-09] MEDS: ASPIRIN 81 MG EC TABLET PO SCH (09:10)
[2017-08-09] MEDS: TRIHEXYPHENIDYL HCL 2 MG TABLET PO SCH ×2 (09:10→17:19)
[2017-08-09] MEDS: OMEPRAZOLE 20 MG CAPSULE PO SCH (09:10)
[2017-08-09] MEDS: DOCUSATE SODIUM 250 MG CAPSULE PO SCH ×2 (09:10→17:19)
[2017-08-09] MEDS: ROPINIRole HCL 1 MG TABLET PO SCH ×3 (09:10→17:20)
[2017-08-09] MEDS: PARoxetine HCL 20 MG TABLET PO SCH (09:10)
[2017-08-09] MEDS: FOLIC ACID 1 MG TABLET PO SCH (09:10)
[2017-08-09] MEDS: THIAMINE HCL 100 MG TABLET PO SCH ×2 (09:11→17:19)
[2017-08-09] MEDS: PROPRANOLOL HCL 10 MG TABLET PO SCH ×3 (09:11→17:19)
[2017-08-09] MEDS: NALTREXONE HCL 50 MG TABLET PO SCH (09:11)
[2017-08-09] MEDS: QUEtiapine FUMARATE 25 MG TABLET PO SCH ×3 (09:11→17:19)
[2017-08-09] MEDS: MULTIVITAMINS WITH MINERALS, THERAPEUTIC TABLET PO SCH (09:11)
[2017-08-09] MEDS: METOPROLOL TARTRATE 50 MG TABLET PO SCH (09:11)
[2017-08-09] MEDS: BuPROPion HCL XL 150 MG ER TABLET PO SCH (09:12)
[2017-08-09] MEDS: FLUTICASONE/VILANTEROL 200-25 MCG/INH INHALER [14] IH SCH (09:13)
[2017-08-09] MEDS: INGREZZA 40 MG PO SCH (09:13)
[2017-08-09] MEDS: ZINC OXIDE 16% PASTE 57 GM TUBE TP SCH ×2 (09:14→17:20)
[2017-08-09 16:26] VITALS: BP 104/62
[2017-08-09] MEDS: QUEtiapine FUMARATE 200 MG TABLET PO SCH (20:51)
[2017-08-09] MEDS: ATORVASTATIN CALCIUM 20 MG TABLET PO SCH (20:51)
[2017-08-10 04:48] VITALS: BP 117/72
[2017-08-10] MEDS: LEVOTHYROXINE SODIUM 25 MCG TABLET PO SCH (06:38)
[2017-08-10 08:19] VITALS: BP 110/71
[2017-08-10] MEDS ORDERED: NICOTINE 21 MG/24 HOUR PATCH TD SCH (09:00)
[2017-08-10] MEDS: INGREZZA 40 MG PO SCH (09:16)
[2017-08-10] MEDS: LOSARTAN POTASSIUM 50 MG TABLET PO SCH (09:17)
[2017-08-10] MEDS: FLUTICASONE/VILANTEROL 200-25 MCG/INH INHALER [14] IH SCH (09:17)
[2017-08-10] MEDS: ROPINIRole HCL 1 MG TABLET PO SCH ×2 (09:17→12:37)
[2017-08-10] MEDS: METOPROLOL TARTRATE 50 MG TABLET PO SCH (09:17)
[2017-08-10] MEDS: QUEtiapine FUMARATE 25 MG TABLET PO SCH ×2 (09:18→12:37)
[2017-08-10] MEDS: PARoxetine HCL 20 MG TABLET PO SCH (09:18)
[2017-08-10] MEDS: ASPIRIN 81 MG EC TABLET PO SCH (09:19)
[2017-08-10] MEDS: FOLIC ACID 1 MG TABLET PO SCH (09:19)
[2017-08-10] MEDS: TRIHEXYPHENIDYL HCL 2 MG TABLET PO SCH (09:19)
[2017-08-10] MEDS: PROMETHAZINE HCL 25 MG TABLET PO PRN (09:19)
[2017-08-10] MEDS: DOCUSATE SODIUM 250 MG CAPSULE PO SCH (09:19)
[2017-08-10] MEDS: BuPROPion HCL XL 150 MG ER TABLET PO SCH (09:19)
[2017-08-10] MEDS: OMEPRAZOLE 20 MG CAPSULE PO SCH (09:19)
[2017-08-10] MEDS: MULTIVITAMINS WITH MINERALS, THERAPEUTIC TABLET PO SCH (09:20)
[2017-08-10] MEDS: THIAMINE HCL 100 MG TABLET PO SCH (09:20)
[2017-08-10] MEDS: ZINC OXIDE 16% PASTE 57 GM TUBE TP SCH (09:20)
[2017-08-10] MEDS: NALTREXONE HCL 50 MG TABLET PO SCH (09:47)
[2017-08-10] MEDS: PROPRANOLOL HCL 10 MG TABLET PO SCH ×2 (09:48→12:37)
== END 2017-08-10 13:20 | disposition home or self-care (01) | DRG 885 ==
LOC: B2S 14:08
PROVIDERS: ADMIT Psychiatry & Neurology Psychiatry; ATTEND Psychiatry & Neurology Psychiatry
DX: F25.9 Schizoaffective disorder, unspecified (principal); R45.851 Suicidal ideations; J44.9 Chronic obstructive pulmonary disease, unspecified; Z91.19 Patient's noncompliance with other medical treatment and regimen; D64.9 Anemia, unspecified; I12.9 Hypertensive chronic kidney disease with stage 1 through stage 4 chronic kidney disease, or unspecified chronic kidney disease; K31.9 Disease of stomach and duodenum, unspecified; M19.90 Unspecified osteoarthritis, unspecified site; N18.9 Chronic kidney disease, unspecified; F14.10 Cocaine abuse, uncomplicated; E03.9 Hypothyroidism, unspecified; F17.210 Nicotine dependence, cigarettes, uncomplicated; E78.5 Hyperlipidemia, unspecified; K21.9 Gastro-esophageal reflux disease without esophagitis; K59.09 Other constipation; Z59.9 Problem related to housing and economic circumstances, unspecified; Z65.3 Problems related to other legal circumstances; Z63.9 Problem related to primary support group, unspecified; Z88.1 Allergy status to other antibiotic agents
CPT/HCPCS: 83036; 84439; 84443; 86592

== ENCOUNTER 2017-09-23 15:28 | Inpatient (IN) | payer MEDICARE, MEDICAID ==
[~2017-09-23] VITALS: Ht 162.6 cm; Wt 68.5 kg
[~2017-09-23 15:28] MED LIST changes: +ASPI-1182 PO; +ATOR20TA86 PO; +BUPR-47 PO; -BUPR-93 PO; -CARB100 PO; +FLUT1BLS IH; -FLUT1BLS PO; +FOLI1 PO; +LEVO25TA9 PO; +MULT-248 PO; +NALT50TA PO; +PARO-37 PO; +PROP10TA72 PO; -QUET100T PO; +QUET200T29 PO; +QUET25TA34 PO; -QUET400T3 PO; -ROPI1TAB11 PO; +ROPI1TAB38 PO; +THIA100 PO; +TRIH2TAB3 PO
[2017-09-23 17:03] LABS: BASOPHILS # (AUTO) 0.03 K/uL (0.00-0.20); BASOPHILS % (AUTO) 0.3 % (0.0-2.0); EOSINOPHILS % (AUTO) 7.52 % (1.0-6.0); HEMATOCRIT 37.9 % (36-46); HEMOGLOBIN 11.9 g/dL (12.0-16.0); LYMPHOCYTES % (AUTO) 21.2 % (22.0-44.0); MEAN CORPUSCULAR HEMOGLOBIN 28.3 pg (26.0-34.0); MEAN CORPUSCULAR HGB CONC 31.4 G/dL (31.0-37.0); MEAN CORPUSCULAR VOLUME 90 fL (80-100); MONOCYTES # (AUTO) 0.7 K/uL (0.1-1.0); MONOCYTES % (AUTO) 7.3 % (2.0-9.0); NEUTROPHILS # (AUTO) 5.9 K/uL (1.8-7.7); NEUTROPHILS % (AUTO) 63.7 % (40.0-70.0); PLATELET COUNT (AUTO) 299 K/uL (150-450); RED CELL DISTRIBUTION WIDTH 14.9 % (11.5-14.5); WHITE BLOOD COUNT (AUTO) 9.3 K/uL (4.5-11.0)
[2017-09-23 17:16] LABS: ANION GAP 10 mmol/L (8-16); CALCIUM, TOTAL 9.4 mg/dL (8.8-10.5); CARBON DIOXIDE 23 mmol/L (22-29); CHLORIDE 103 mmol/L (98-107); CREATININE 1.42 mg/dL (0.60-1.30); GLOMERULAR FILTR. RATE CALC 37 mL/min (>60); SODIUM SERUM 136 mmol/L (136-145); UREA NITROGEN, BLOOD 18 mg/dL (7-18)
[2017-09-23 17:30] LABS: ALANINE AMINOTRANSFERASE 30 U/L (12-78); ALBUMIN 3.5 g/dL (3.4-5.0); ASPARTATE AMINOTRANSFERASE 26 U/L (15-37); BILIRUBIN,TOTAL 0.3 mg/dL (0.1-1.0); THYROID STIMULATING HORMONE 4.78 uIU/mL (0.36-3.74); TOTAL PROTEIN, SERUM 6.8 g/dL (6.4-8.2)
[2017-09-23] MEDS ORDERED: HALOPERIDOL 5 MG TABLET PO PRN (18:45)
[2017-09-23] MEDS ORDERED: ZOLPIDEM TARTRATE 10 MG TABLET PO PRN (18:45)
[2017-09-23 19:56] VITALS: BP 137/75
[2017-09-23 20:01] VITALS: BP 137/75
[2017-09-23] MEDS ORDERED: INFLUENZA VIRUS VACCINE QVS 2017-18 (3YR+)/PF 60 MCG/0.5 ML SYRINGE IM ONE (20:15)
[2017-09-23] MEDS ORDERED: PNEUMOCOCCAL VACCINE POLYVALENT 0.5 ML VIAL [PPSV23] IM ONE (20:15)
[2017-09-23] MEDS: ATORVASTATIN CALCIUM 20 MG TABLET PO SCH (21:05)
[2017-09-23] MEDS: LORazepam 2 MG TABLET PO PRN (21:05)
[2017-09-23] MEDS ORDERED: ACETAMINOPHEN 325 MG TABLET PO PRN (21:30)
[2017-09-23] MEDS ORDERED: IBUPROFEN 400 MG TABLET PO PRN (21:30)
[2017-09-24 02:34] VITALS: BP 135/88
[2017-09-24] MEDS: LEVOTHYROXINE SODIUM 25 MCG TABLET PO SCH (06:55)
[2017-09-24] MEDS: OMEPRAZOLE 20 MG CAPSULE PO SCH (08:34)
[2017-09-24] MEDS: ASPIRIN 81 MG CHEWABLE TABLET PO SCH (08:34)
[2017-09-24] MEDS: THIAMINE HCL 100 MG TABLET PO SCH ×2 (08:34→16:09)
[2017-09-24] MEDS: FOLIC ACID 1 MG TABLET PO SCH (08:35)
[2017-09-24] MEDS: DOCUSATE SODIUM 250 MG CAPSULE PO SCH ×2 (08:35→16:09)
[2017-09-24] MEDS: METOPROLOL TARTRATE 50 MG TABLET PO SCH (08:35)
[2017-09-24 08:43] VITALS: BP 126/81
[2017-09-24 08:50] LABS: CHOL/HDL RATIO 2.8 (3.9-5.7)
[2017-09-24] MEDS ORDERED: THIAMINE HCL 100 MG/ML 2ML VIAL IM SCH (09:00)
[2017-09-24] MEDS ORDERED: FOLIC ACID 1 MG TABLET PO SCH (09:00)
[2017-09-24] MEDS ORDERED: DOCUSATE SODIUM 100 MG CAPSULE PO SCH (09:00)
[2017-09-24] MEDS: FLUTICASONE/VILANTEROL 200-25 MCG/INH INHALER [14] IH SCH (09:00)
[2017-09-24] MEDS ORDERED: FLUTICASONE/VILANTEROL 200-25 MCG/INH INHALER [14] IH SCH (09:00)
[2017-09-24] MEDS ORDERED: BuPROPion HCL XL 150 MG ER TABLET PO SCH (11:30)
[2017-09-24] MEDS: PARoxetine HCL 20 MG TABLET PO SCH (11:42)
[2017-09-24] MEDS: HYDROCHLOROTHIAZIDE 25 MG TABLET PO SCH (11:42)
[2017-09-24] MEDS ORDERED: NALT50TA PO (14:43)
[2017-09-24] MEDS ORDERED: BUPR-47 PO (14:43)
[2017-09-24] MEDS ORDERED: ROPI1TAB38 PO (14:43)
[2017-09-24] MEDS ORDERED: PARO-37 PO (14:43)
[2017-09-24] MEDS ORDERED: QUET200T29 PO (14:43)
[2017-09-24] MEDS ORDERED: PROP20 PO (14:43)
[2017-09-24] MEDS ORDERED: QUET25TA34 PO (14:43)
[2017-09-24] MEDS ORDERED: QUEtiapine FUMARATE 100 MG TABLET PO PRN (14:45)
[2017-09-24] MEDS ORDERED: LOPERAMIDE HCL 2 MG CAPSULE PO PRN ×2 (14:45)
[2017-09-24] MEDS ORDERED: PROMETHAZINE HCL 25 MG TABLET PO PRN (14:45)
[2017-09-24] MEDS ORDERED: HydrOXYzine PAMOATE 50 MG CAPSULE PO PRN (14:45)
[2017-09-24] MEDS ORDERED: GuaiFENesin/D-METHORPHAN [SUGAR-FREE] 200-20MG/10 ML SYRUP UDCUP PO PRN (14:45)
[2017-09-24] MEDS ORDERED: MAG HYDROX/AL HYDROX/SIMETH ES 30 ML SUSPENSION UDCUP PO PRN (14:45)
[2017-09-24] MEDS ORDERED: MAGNESIUM HYDROXIDE SUSPENSION 30 ML UDCUP PO PRN (14:45)
[2017-09-24] MEDS ORDERED: ACETAMINOPHEN 325 MG TABLET PO PRN (14:45)
[2017-09-24] MEDS: TIOTROPIUM BROMIDE 18 MCG/INH HANDIHALER [5] IH SCH (16:08)
[2017-09-24 16:09] VITALS: BP 130/78
[2017-09-24] MEDS: LORazepam 2 MG TABLET PO PRN (16:09)
[2017-09-24] MEDS: ROPINIRole HCL 1 MG TABLET PO SCH (16:09)
[2017-09-24] MEDS: LOSARTAN POTASSIUM 50 MG TABLET PO SCH (16:09)
[2017-09-24] MEDS ORDERED: PROPRANOLOL HCL 20 MG TABLET PO SCH (17:00)
[2017-09-24] MEDS: ATORVASTATIN CALCIUM 20 MG TABLET PO SCH (20:05)
[2017-09-24] MEDS ORDERED: QUEtiapine FUMARATE 200 MG TABLET PO SCH (21:00)
[2017-09-24] MEDS ORDERED: QUEtiapine FUMARATE 25 MG TABLET PO SCH (21:00)
[2017-09-25 06:07] VITALS: BP 120/74
[2017-09-25] MEDS: LEVOTHYROXINE SODIUM 25 MCG TABLET PO SCH (06:36)
[2017-09-25] MEDS: FLUTICASONE/VILANTEROL 200-25 MCG/INH INHALER [14] IH SCH (08:36)
[2017-09-25] MEDS: ROPINIRole HCL 1 MG TABLET PO SCH (08:37)
[2017-09-25] MEDS: PARoxetine HCL 20 MG TABLET PO SCH (08:37)
[2017-09-25] MEDS: METOPROLOL TARTRATE 50 MG TABLET PO SCH (08:37)
[2017-09-25] MEDS: TIOTROPIUM BROMIDE 18 MCG/INH HANDIHALER [5] IH SCH (08:37)
[2017-09-25] MEDS: DOCUSATE SODIUM 250 MG CAPSULE PO SCH (08:38)
[2017-09-25] MEDS: OMEPRAZOLE 20 MG CAPSULE PO SCH (08:38)
[2017-09-25] MEDS: HYDROCHLOROTHIAZIDE 25 MG TABLET PO SCH (08:38)
[2017-09-25] MEDS: THIAMINE HCL 100 MG TABLET PO SCH (08:38)
[2017-09-25] MEDS: ASPIRIN 81 MG CHEWABLE TABLET PO SCH (08:38)
[2017-09-25] MEDS: FOLIC ACID 1 MG TABLET PO SCH (08:38)
[2017-09-25] MEDS: LOSARTAN POTASSIUM 50 MG TABLET PO SCH (08:38)
[2017-09-25 08:40] VITALS: BP 114/75
[2017-09-25] MEDS ORDERED: NALTREXONE HCL 50 MG TABLET PO SCH (09:00)
[2017-09-25] MEDS ORDERED: BuPROPion HCL XL 150 MG ER TABLET PO SCH (09:00)
[2017-09-25] MEDS ORDERED: TIOTROPIUM BROMIDE 18 MCG/INH HANDIHALER [5] IH SCH (09:00)
[2017-09-25] MEDS ORDERED: MULTIVITAMINS WITH MINERALS, THERAPEUTIC TABLET PO SCH (09:00)
[2017-09-25] MEDS ORDERED: QUET25TA34 PO (10:18)
[2017-09-25] MEDS ORDERED: LOSA25TA21 PO (10:21)
[2017-09-25] MEDS ORDERED: HYDR25TA PO ×2 (10:25→10:29)
[2017-09-25] MEDS ORDERED: TIOT185 IH (10:38)
== END 2017-09-25 13:55 | disposition home or self-care (01) | DRG 885 ==
LOC: EMS 15:34 → B3A 18:33
PROVIDERS: ADMIT Psychiatry & Neurology Psychiatry; ATTEND Psychiatry & Neurology Psychiatry
DX: F25.9 Schizoaffective disorder, unspecified (principal); N18.9 Chronic kidney disease, unspecified; J44.9 Chronic obstructive pulmonary disease, unspecified; Z91.19 Patient's noncompliance with other medical treatment and regimen; E03.9 Hypothyroidism, unspecified; F41.9 Anxiety disorder, unspecified; I12.9 Hypertensive chronic kidney disease with stage 1 through stage 4 chronic kidney disease, or unspecified chronic kidney disease; F17.210 Nicotine dependence, cigarettes, uncomplicated; K21.9 Gastro-esophageal reflux disease without esophagitis; M19.90 Unspecified osteoarthritis, unspecified site; K59.09 Other constipation; E78.5 Hyperlipidemia, unspecified; F14.10 Cocaine abuse, uncomplicated; Z88.1 Allergy status to other antibiotic agents; Z79.82 Long term (current) use of aspirin; Z79.899 Other long term (current) drug therapy; Z71.6 Tobacco abuse counseling; Z28.21 Immunization not carried out because of patient refusal
CPT/HCPCS: 83036; 84439; 84443; 99285; 99406; G0480

== ENCOUNTER 2017-10-15 21:31 | Inpatient (IN) | payer MEDICARE, MEDICAID ==
[~2017-10-15] VITALS: Ht 162.6 cm; Wt 69.8 kg
[~2017-10-15 21:31] MED LIST changes: -ATOR20TA86 PO; -FOLI1 PO; +HYDR25TA PO; +LOSA25TA21 PO; -MULT-248 PO; -PROP10TA72 PO; +PROP20 PO; -THIA100 PO; +TIOT185 IH; -TRIH2TAB3 PO
[2017-10-15 22:08] LABS: BASOPHILS # (AUTO) 0.05 K/uL (0.00-0.20); BASOPHILS % (AUTO) 0.5 % (0.0-2.0); EOSINOPHILS # (AUTO) 0.74 K/uL (0.00-0.70); EOSINOPHILS % (AUTO) 8.54 % (1.0-6.0); HEMATOCRIT 33.4 % (36-46); HEMOGLOBIN 11.1 g/dL (12.0-16.0); LYMPHOCYTES # (AUTO) 1.5 K/uL (1.0-4.8); LYMPHOCYTES % (AUTO) 17.7 % (22.0-44.0); MEAN CORPUSCULAR HGB CONC 33.2 G/dL (31.0-37.0); MEAN CORPUSCULAR VOLUME 90 fL (80-100); MONOCYTES # (AUTO) 0.6 K/uL (0.1-1.0); MONOCYTES % (AUTO) 7.1 % (2.0-9.0); NEUTROPHILS # (AUTO) 5.8 K/uL (1.8-7.7); NEUTROPHILS % (AUTO) 66.1 % (40.0-70.0); PLATELET COUNT (AUTO) 233 K/uL (150-450); RED CELL DISTRIBUTION WIDTH 15.5 % (11.5-14.5); WHITE BLOOD COUNT (AUTO) 8.7 K/uL (4.5-11.0)
[2017-10-15 22:18] LABS: ANION GAP 12 mmol/L (8-16); CALCIUM, TOTAL 8.9 mg/dL (8.8-10.5); CARBON DIOXIDE 23 mmol/L (22-29); CHLORIDE 107 mmol/L (98-107); CREATININE 1.78 mg/dL (0.60-1.30); GLOMERULAR FILTR. RATE CALC 28 mL/min (>60); POTASSIUM 4.1 mmol/L (3.5-5.1); SODIUM SERUM 142 mmol/L (136-145); UREA NITROGEN, BLOOD 47 mg/dL (7-18)
[2017-10-15 22:26] LABS: ALANINE AMINOTRANSFERASE 24 U/L (12-78); ALBUMIN 3.4 g/dL (3.4-5.0); ASPARTATE AMINOTRANSFERASE 19 U/L (15-37); BILIRUBIN,TOTAL 0.2 mg/dL (0.1-1.0); TOTAL PROTEIN, SERUM 6.6 g/dL (6.4-8.2)
[2017-10-16] MEDS ORDERED: LORazepam 2 MG TABLET PO PRN
[2017-10-16] MEDS ORDERED: ZOLPIDEM TARTRATE 10 MG TABLET PO PRN
[2017-10-16] MEDS ORDERED: OLANZapine 5 MG RAPDIS TABLET PO PRN
[2017-10-16 00:55] LABS: CHOL/HDL RATIO 3.2 (3.9-5.7); THYROID STIMULATING HORMONE 9.27 uIU/mL (0.36-3.74)
[2017-10-16 01:56] VITALS: BP 110/63
[2017-10-16] MEDS ORDERED: PNEUMOCOCCAL VACCINE POLYVALENT 0.5 ML VIAL [PPSV23] IM ONE (03:30)
[2017-10-16] MEDS ORDERED: INFLUENZA VIRUS VACCINE QVS 2017-18 (3YR+)/PF 60 MCG/0.5 ML SYRINGE IM ONE (03:30)
[2017-10-16] MEDS: LEVOTHYROXINE SODIUM 25 MCG TABLET PO SCH (07:15)
[2017-10-16 08:25] VITALS: BP 146/78
[2017-10-16] MEDS: MULTIVITAMINS WITH MINERALS, THERAPEUTIC TABLET PO SCH (09:15)
[2017-10-16] MEDS: ASPIRIN 81 MG CHEWABLE TABLET PO SCH (09:15)
[2017-10-16] MEDS: DOCUSATE SODIUM 250 MG CAPSULE PO SCH ×2 (09:15→16:38)
[2017-10-16] MEDS: OMEPRAZOLE 20 MG CAPSULE PO SCH (09:15)
[2017-10-16] MEDS: THIAMINE HCL 100 MG TABLET PO SCH ×2 (09:33→16:38)
[2017-10-16] MEDS: FOLIC ACID 1 MG TABLET PO SCH (09:33)
[2017-10-16] MEDS: ROPINIRole HCL 1 MG TABLET PO SCH ×3 (09:33→16:38)
[2017-10-16] MEDS: LOSARTAN POTASSIUM 50 MG TABLET PO SCH (09:33)
[2017-10-16] MEDS: TIOTROPIUM BROMIDE 18 MCG/INH HANDIHALER [5] IH SCH (09:33)
[2017-10-16] MEDS: METOPROLOL TARTRATE 50 MG TABLET PO SCH (09:33)
[2017-10-16] MEDS: FLUTICASONE/VILANTEROL 200-25 MCG/INH INHALER [14] IH SCH (09:33)
[2017-10-16] MEDS: HYDROCHLOROTHIAZIDE 25 MG TABLET PO SCH (09:34)
[2017-10-16] MEDS ORDERED: MAG HYDROX/AL HYDROX/SIMETH ES 30 ML SUSPENSION UDCUP PO PRN (09:45)
[2017-10-16] MEDS ORDERED: CYANOCOBALAMIN 1,000 MCG/ML VIAL IM ONE (09:45)
[2017-10-16] MEDS ORDERED: LOPERAMIDE HCL 2 MG CAPSULE PO PRN (09:45)
[2017-10-16] MEDS ORDERED: PROMETHAZINE HCL 25 MG TABLET PO PRN (09:45)
[2017-10-16] MEDS ORDERED: ACETAMINOPHEN 325 MG TABLET PO PRN (09:45)
[2017-10-16] MEDS ORDERED: GuaiFENesin/D-METHORPHAN [SUGAR-FREE] 200-20MG/10 ML SYRUP UDCUP PO PRN (09:45)
[2017-10-16] MEDS ORDERED: MAGNESIUM HYDROXIDE SUSPENSION 30 ML UDCUP PO PRN (09:45)
[2017-10-16] MEDS ORDERED: HydrOXYzine PAMOATE 50 MG CAPSULE PO PRN (09:45)
[2017-10-16] MEDS: QUEtiapine FUMARATE 25 MG TABLET PO SCH (16:38)
[2017-10-16] MEDS ORDERED: THIAMINE HCL 100 MG TABLET PO SCH (17:00)
[2017-10-16] MEDS ORDERED: DOCUSATE SODIUM 100 MG CAPSULE PO SCH (17:00)
[2017-10-16 22:07] VITALS: BP 126/72
[2017-10-16] MEDS: ATORVASTATIN CALCIUM 20 MG TABLET PO SCH (22:14)
[2017-10-16] MEDS: QUEtiapine FUMARATE 200 MG TABLET PO SCH (22:15)
[2017-10-17 05:35] VITALS: BP 124/67
[2017-10-17] MEDS: LEVOTHYROXINE SODIUM 25 MCG TABLET PO SCH (06:56)
[2017-10-17 08:15] VITALS: BP 117/74
[2017-10-17] MEDS: TIOTROPIUM BROMIDE 18 MCG/INH HANDIHALER [5] IH SCH (08:31)
[2017-10-17] MEDS: BuPROPion HCL XL 150 MG ER TABLET PO SCH (08:32)
[2017-10-17] MEDS: FOLIC ACID 1 MG TABLET PO SCH (08:33)
[2017-10-17] MEDS: LOSARTAN POTASSIUM 50 MG TABLET PO SCH (08:34)
[2017-10-17] MEDS: DOCUSATE SODIUM 250 MG CAPSULE PO SCH ×2 (08:34→16:40)
[2017-10-17] MEDS: NALTREXONE HCL 50 MG TABLET PO SCH (08:35)
[2017-10-17] MEDS: PARoxetine HCL 20 MG TABLET PO SCH (08:35)
[2017-10-17] MEDS: METOPROLOL TARTRATE 50 MG TABLET PO SCH (08:35)
[2017-10-17] MEDS: HYDROCHLOROTHIAZIDE 25 MG TABLET PO SCH (08:35)
[2017-10-17] MEDS: ROPINIRole HCL 1 MG TABLET PO SCH ×3 (08:36→16:36)
[2017-10-17] MEDS: THIAMINE HCL 100 MG TABLET PO SCH ×2 (08:36→16:37)
[2017-10-17] MEDS: MULTIVITAMINS WITH MINERALS, THERAPEUTIC TABLET PO SCH (08:37)
[2017-10-17] MEDS: QUEtiapine FUMARATE 25 MG TABLET PO SCH ×2 (08:38→16:37)
[2017-10-17] MEDS: ASPIRIN 81 MG CHEWABLE TABLET PO SCH (08:39)
[2017-10-17] MEDS: OMEPRAZOLE 20 MG CAPSULE PO SCH (08:39)
[2017-10-17] MEDS: FLUTICASONE/VILANTEROL 200-25 MCG/INH INHALER [14] IH SCH (08:40)
[2017-10-17] MEDS ORDERED: OMEPRAZOLE 20 MG CAPSULE PO SCH (09:00)
[2017-10-17] MEDS ORDERED: FLUTICASONE/VILANTEROL 200-25 MCG/INH INHALER [14] IH SCH (09:00)
[2017-10-17] MEDS ORDERED: TIOTROPIUM BROMIDE 18 MCG/INH HANDIHALER [5] IH SCH (09:00)
[2017-10-17] MEDS ORDERED: FOLIC ACID 1 MG TABLET PO SCH (09:00)
[2017-10-17] MEDS ORDERED: MULTIVITAMINS WITH MINERALS, THERAPEUTIC TABLET PO SCH (09:00)
[2017-10-17 17:06] VITALS: BP 132/84
[2017-10-17] MEDS: QUEtiapine FUMARATE 200 MG TABLET PO SCH (20:47)
[2017-10-17] MEDS: ATORVASTATIN CALCIUM 20 MG TABLET PO SCH (20:47)
[2017-10-18 05:13] VITALS: BP 100/65
[2017-10-18] MEDS: LEVOTHYROXINE SODIUM 25 MCG TABLET PO SCH (07:04)
[2017-10-18] MEDS: QUEtiapine FUMARATE 25 MG TABLET PO SCH ×2 (09:03→16:34)
[2017-10-18] MEDS: MULTIVITAMINS WITH MINERALS, THERAPEUTIC TABLET PO SCH (09:03)
[2017-10-18] MEDS: OMEPRAZOLE 20 MG CAPSULE PO SCH (09:03)
[2017-10-18] MEDS: DOCUSATE SODIUM 250 MG CAPSULE PO SCH ×2 (09:03→16:38)
[2017-10-18] MEDS: TIOTROPIUM BROMIDE 18 MCG/INH HANDIHALER [5] IH SCH (09:04)
[2017-10-18] MEDS: ASPIRIN 81 MG CHEWABLE TABLET PO SCH (09:04)
[2017-10-18] MEDS: ROPINIRole HCL 1 MG TABLET PO SCH ×3 (09:04→16:34)
[2017-10-18] MEDS: THIAMINE HCL 100 MG TABLET PO SCH ×2 (09:05→16:34)
[2017-10-18] MEDS: FLUTICASONE/VILANTEROL 200-25 MCG/INH INHALER [14] IH SCH (09:05)
[2017-10-18] MEDS: PARoxetine HCL 20 MG TABLET PO SCH (09:06)
[2017-10-18] MEDS: METOPROLOL TARTRATE 50 MG TABLET PO SCH (09:06)
[2017-10-18] MEDS: FOLIC ACID 1 MG TABLET PO SCH (09:06)
[2017-10-18] MEDS: HYDROCHLOROTHIAZIDE 25 MG TABLET PO SCH (09:06)
[2017-10-18] MEDS: NALTREXONE HCL 50 MG TABLET PO SCH (09:07)
[2017-10-18] MEDS: LOSARTAN POTASSIUM 50 MG TABLET PO SCH (09:07)
[2017-10-18] MEDS: BuPROPion HCL XL 150 MG ER TABLET PO SCH (09:08)
[2017-10-18 09:46] VITALS: BP 129/71
[2017-10-18] MEDS: NICOTINE 14 MG/24 HOUR PATCH TD SCH (11:55)
[2017-10-18 16:33] VITALS: BP 118/72
[2017-10-18] MEDS: QUEtiapine FUMARATE 200 MG TABLET PO SCH (20:52)
[2017-10-18] MEDS: ATORVASTATIN CALCIUM 20 MG TABLET PO SCH (20:52)
[2017-10-19 04:13] VITALS: BP 144/73
[2017-10-19] MEDS: LEVOTHYROXINE SODIUM 25 MCG TABLET PO SCH (07:03)
[2017-10-19] MEDS: FLUTICASONE/VILANTEROL 200-25 MCG/INH INHALER [14] IH SCH (08:09)
[2017-10-19] MEDS: TIOTROPIUM BROMIDE 18 MCG/INH HANDIHALER [5] IH SCH (08:10)
[2017-10-19] MEDS: FOLIC ACID 1 MG TABLET PO SCH (08:11)
[2017-10-19] MEDS: ROPINIRole HCL 1 MG TABLET PO SCH ×3 (08:11→16:09)
[2017-10-19] MEDS: BuPROPion HCL XL 150 MG ER TABLET PO SCH (08:11)
[2017-10-19] MEDS: QUEtiapine FUMARATE 25 MG TABLET PO SCH ×2 (08:11→16:10)
[2017-10-19] MEDS: LOSARTAN POTASSIUM 50 MG TABLET PO SCH (08:11)
[2017-10-19] MEDS: PARoxetine HCL 20 MG TABLET PO SCH (08:11)
[2017-10-19] MEDS: NALTREXONE HCL 50 MG TABLET PO SCH (08:11)
[2017-10-19] MEDS: HYDROCHLOROTHIAZIDE 25 MG TABLET PO SCH (08:11)
[2017-10-19] MEDS: THIAMINE HCL 100 MG TABLET PO SCH ×2 (08:11→16:10)
[2017-10-19] MEDS: MULTIVITAMINS WITH MINERALS, THERAPEUTIC TABLET PO SCH (08:12)
[2017-10-19] MEDS: ASPIRIN 81 MG CHEWABLE TABLET PO SCH (08:12)
[2017-10-19] MEDS: OMEPRAZOLE 20 MG CAPSULE PO SCH (08:12)
[2017-10-19] MEDS: DOCUSATE SODIUM 250 MG CAPSULE PO SCH ×2 (08:12→16:09)
[2017-10-19] MEDS: METOPROLOL TARTRATE 50 MG TABLET PO SCH (08:15)
[2017-10-19] MEDS: NICOTINE 14 MG/24 HOUR PATCH TD SCH (08:15)
[2017-10-19 09:20] VITALS: BP 160/65
[2017-10-19 17:00] VITALS: BP 105/69
[2017-10-19] MEDS ORDERED: QUET25TA34 PO (17:09)
[2017-10-19] MEDS ORDERED: QUET200T29 PO (17:09)
[2017-10-19] MEDS ORDERED: ROPI1TAB38 PO (17:09)
[2017-10-19] MEDS ORDERED: NALT50TA PO (17:09)
[2017-10-19] MEDS ORDERED: PARO-37 PO (17:09)
[2017-10-19] MEDS ORDERED: BUPR-47 PO (17:09)
[2017-10-19] MEDS: ATORVASTATIN CALCIUM 20 MG TABLET PO SCH (20:39)
[2017-10-19] MEDS: QUEtiapine FUMARATE 200 MG TABLET PO SCH (20:39)
[2017-10-20] MEDS: LEVOTHYROXINE SODIUM 25 MCG TABLET PO SCH (06:33)
[2017-10-20 06:41] VITALS: BP 121/72
[2017-10-20 08:30] VITALS: BP 124/71
[2017-10-20] MEDS: NICOTINE 14 MG/24 HOUR PATCH TD SCH (09:00)
[2017-10-20] MEDS: FLUTICASONE/VILANTEROL 200-25 MCG/INH INHALER [14] IH SCH (09:16)
[2017-10-20] MEDS: MULTIVITAMINS WITH MINERALS, THERAPEUTIC TABLET PO SCH (09:16)
[2017-10-20] MEDS: ASPIRIN 81 MG CHEWABLE TABLET PO SCH (09:16)
[2017-10-20] MEDS: OMEPRAZOLE 20 MG CAPSULE PO SCH (09:16)
[2017-10-20] MEDS: DOCUSATE SODIUM 250 MG CAPSULE PO SCH (09:16)
[2017-10-20] MEDS: BuPROPion HCL XL 150 MG ER TABLET PO SCH (09:17)
[2017-10-20] MEDS: HYDROCHLOROTHIAZIDE 25 MG TABLET PO SCH (09:18)
[2017-10-20] MEDS: LOSARTAN POTASSIUM 50 MG TABLET PO SCH (09:18)
[2017-10-20] MEDS: ROPINIRole HCL 1 MG TABLET PO SCH (09:18)
[2017-10-20] MEDS: FOLIC ACID 1 MG TABLET PO SCH (09:18)
[2017-10-20] MEDS: NALTREXONE HCL 50 MG TABLET PO SCH (09:18)
[2017-10-20] MEDS: PARoxetine HCL 20 MG TABLET PO SCH (09:18)
[2017-10-20] MEDS: THIAMINE HCL 100 MG TABLET PO SCH (09:19)
[2017-10-20] MEDS: QUEtiapine FUMARATE 25 MG TABLET PO SCH (09:20)
[2017-10-20] MEDS: METOPROLOL TARTRATE 50 MG TABLET PO SCH (09:20)
[2017-10-20] MEDS: TIOTROPIUM BROMIDE 18 MCG/INH HANDIHALER [5] IH SCH (10:16)
== END 2017-10-20 12:15 | disposition home or self-care (01) | DRG 885 ==
LOC: EMS 21:34 → 3EX 10-16 01:04
PROVIDERS: ADMIT Psychiatry & Neurology Psychiatry; ATTEND Psychiatry & Neurology Psychiatry
PROC: 3E0234Z Introduction of Serum, Toxoid and Vaccine into Muscle, Percutaneous Approach (ICD-10-PCS; principal; 2017-10-16)
DX: F25.9 Schizoaffective disorder, unspecified (principal); N18.9 Chronic kidney disease, unspecified; J44.9 Chronic obstructive pulmonary disease, unspecified; Z91.19 Patient's noncompliance with other medical treatment and regimen; E03.9 Hypothyroidism, unspecified; F14.10 Cocaine abuse, uncomplicated; E78.5 Hyperlipidemia, unspecified; G24.01 Drug induced subacute dyskinesia; I12.9 Hypertensive chronic kidney disease with stage 1 through stage 4 chronic kidney disease, or unspecified chronic kidney disease; K59.09 Other constipation; K21.9 Gastro-esophageal reflux disease without esophagitis; F41.9 Anxiety disorder, unspecified; F17.210 Nicotine dependence, cigarettes, uncomplicated; S50.11XA Contusion of right forearm, initial encounter; X58.XXXA Exposure to other specified factors, initial encounter; Y93.F9 Activity, other caregiving; Z88.1 Allergy status to other antibiotic agents; Z79.82 Long term (current) use of aspirin; Z90.49 Acquired absence of other specified parts of digestive tract; Z79.899 Other long term (current) drug therapy; Y92.89 Other specified places as the place of occurrence of the external cause; Z23 Encounter for immunization
CPT/HCPCS: 84443; 87081; 90471; 99285; G0480; J3420

== ENCOUNTER 2017-11-17 09:27 | Emergency (ER) | payer MEDICARE, OTHER ==
[~2017-11-17] VITALS: Ht 170.2 cm; Wt 59.1 kg
[~2017-11-17 09:27] MED LIST changes: -PROP20 PO
[2017-11-17] MEDS ORDERED: QUET25TA PO (10:07)
[2017-11-17 10:34] LABS: BASOPHILS # (AUTO) 0.01 K/uL (0.00-0.20); BASOPHILS % (AUTO) 0.1 % (0.0-2.0); EOSINOPHILS # (AUTO) 0.14 K/uL (0.00-0.70); EOSINOPHILS % (AUTO) 1.23 % (1.0-6.0); HEMATOCRIT 31.5 % (36-46); HEMOGLOBIN 10.1 g/dL (12.0-16.0); LYMPHOCYTES # (AUTO) 0.7 K/uL (1.0-4.8); LYMPHOCYTES % (AUTO) 6.3 % (22.0-44.0); MEAN CORPUSCULAR HEMOGLOBIN 28.9 pg (26.0-34.0); MEAN CORPUSCULAR HGB CONC 32.2 G/dL (31.0-37.0); MEAN CORPUSCULAR VOLUME 90 fL (80-100); MONOCYTES # (AUTO) 0.9 K/uL (0.1-1.0); MONOCYTES % (AUTO) 7.6 % (2.0-9.0); NEUTROPHILS # (AUTO) 9.7 K/uL (1.8-7.7); NEUTROPHILS % (AUTO) 84.8 % (40.0-70.0); PLATELET COUNT (AUTO) 324 K/uL (150-450); RED BLOOD CELL COUNT(AUTO) 3.51 MIL/uL (4.00-5.20); RED CELL DISTRIBUTION WIDTH 14.5 % (11.5-14.5)
[2017-11-17 10:49] LABS: ANION GAP 18 mmol/L (8-16); CALCIUM, TOTAL 10.1 mg/dL (8.8-10.5); CARBON DIOXIDE 22 mmol/L (22-29); CHLORIDE 105 mmol/L (98-107); CREATININE 2.99 mg/dL (0.60-1.30); GLOMERULAR FILTR. RATE CALC 16 mL/min (>60); GLUCOSE,RANDOM 111 mg/dL (70-110); SODIUM SERUM 145 mmol/L (136-145); UREA NITROGEN, BLOOD 58 mg/dL (7-18)
[2017-11-17 10:55] LABS: ALANINE AMINOTRANSFERASE 28 U/L (12-78); ALBUMIN 2.9 g/dL (3.4-5.0); ALKALINE PHOSPHATASE 122 U/L (46-116); ASPARTATE AMINOTRANSFERASE 24 U/L (15-37); BILIRUBIN,TOTAL 0.6 mg/dL (0.1-1.0)
[2017-11-17] MEDS ORDERED: HALOPERIDOL LACTATE 5 MG/ML VIAL IM ONE (11:00)
[2017-11-17] MEDS ORDERED: LORazepam 2 MG/ML VIAL IM ONE (11:00)
[2017-11-17] MEDS ORDERED: DOCU250C91 PO (11:01)
[2017-11-17] MEDS ORDERED: LOSA50TA37 PO (11:01)
[2017-11-17] MEDS ORDERED: POTASSIUM CHLORIDE 20 MEQ ER TABLET PO ONE (12:45)
[2017-11-17 13:20] LABS: APPEARANCE,URINE CLOUDY (CLEAR); BILIRUBIN,URINE NEGATIVE (NEGATIVE); GLUCOSE, URINE (UA) NEGATIVE (NEGATIVE); KETONES,URINE NEGATIVE (NEGATIVE); LEUKOCYTE ESTERASE ,URINE MODERATE (NEGATIVE); NITRATE,URINE POSITIVE (NEGATIVE); OCCULT BLOOD,URINE NEGATIVE (NEGATIVE); PH,URINE 5.5 (5.0-8.0); PROTEIN,URINE NEGATIVE (NEGATIVE); UROBILINOGEN,URINE 0.2 mg/dL (<=1.0)
[2017-11-17 13:30] LABS: LIPASE 47 U/L (73-393)
[2017-11-17 13:41] LABS: AMPHET/METH SCREEN,URINE NEGATIVE (NEGATIVE); BARBITURATE SCREEN, URINE NEGATIVE (NEGATIVE); BENZODIAZEPINES SCREEN,URINE NEGATIVE (NEGATIVE); CANNABINOID SCREEN,URINE NEGATIVE (NEGATIVE); COCAINE SCREEN,URINE NEGATIVE (NEGATIVE); METHADONE SCREEN, URINE NEGATIVE (NEGATIVE); OPIATE SCREEN,URINE NEGATIVE (NEGATIVE)
[2017-11-17 13:47] LABS: RBC,URINE 0-2 /HPF (0-2)
[2017-11-17 13:50] LABS: BACTERIA,URINE Moderate /HPF (None Seen); SQUAMOUS EPITHELIAL CELL,UR Few /LPF (None Seen); TRANSITIONAL EPI CELLS,URINE Few /LPF (None Seen)
[2017-11-17 13:51] LABS: AMORPHOUS SEDIMENT,UR Moderate /LPF (None Seen)
[2017-11-17 14:11] LABS: PHENCYCLIDINE SCREEN,URINE NEGATIVE (NEGATIVE)
[2017-11-17] MEDS ORDERED: CefTRIAXone 1 GM/DEXTROSE 50 ML IV ONE (14:30)
[2017-11-17] MEDS ORDERED: SODIUM CHLORIDE 0.9% 1,000 ML IV ONE ×2 (14:30→15:00)
[2017-11-17 17:27] VITALS: BP 129/66
== END 2017-11-17 17:30 | disposition home or self-care (01) ==
LOC: EMS 09:30
DX: N39.0 Urinary tract infection, site not specified (principal); I12.9 Hypertensive chronic kidney disease with stage 1 through stage 4 chronic kidney disease, or unspecified chronic kidney disease; N18.9 Chronic kidney disease, unspecified; J44.9 Chronic obstructive pulmonary disease, unspecified; E03.9 Hypothyroidism, unspecified; F17.210 Nicotine dependence, cigarettes, uncomplicated; Z79.82 Long term (current) use of aspirin; Z88.1 Allergy status to other antibiotic agents
CPT/HCPCS: 36415; 71045; 80053; 80307; 81001; 82140; 83690; 85025; 87077; 87086; 87186; 93005; 96365; 96372; 99285; G0480; J0696; J1630; J2060; J7030

== ENCOUNTER 2017-12-23 14:53 | Emergency (ER) | payer MEDICARE, OTHER ==
[~2017-12-23] VITALS: Ht 172.7 cm; Wt 72.7 kg
[~2017-12-23 14:53] MED LIST changes: +DOCU250C91 PO; -DSS100 PO; -LOSA25TA21 PO; +LOSA50TA37 PO; -QUET200T29 PO; +QUET25TA PO; -QUET25TA34 PO
[2017-12-23] MEDS ORDERED: ATOR20TA86 PO (15:12)
[2017-12-23] MEDS ORDERED: ACETAMINOPHEN 500 MG TABLET PO ONE (15:15)
[2017-12-23 16:44] VITALS: BP 115/70
== END 2017-12-23 17:31 | disposition home or self-care (01) ==
LOC: EMS 14:56
DX: S63.92XA Sprain of unspecified part of left wrist and hand, initial encounter (principal); E03.9 Hypothyroidism, unspecified; F17.210 Nicotine dependence, cigarettes, uncomplicated; I10 Essential (primary) hypertension; J44.9 Chronic obstructive pulmonary disease, unspecified; Z79.82 Long term (current) use of aspirin; W01.0XXA Fall on same level from slipping, tripping and stumbling without subsequent striking against object, initial encounter; Y92.89 Other specified places as the place of occurrence of the external cause; Y93.89 Activity, other specified; Y99.8 Other external cause status
CPT/HCPCS: 70450; 99284

== ENCOUNTER 2017-12-27 17:01 | Inpatient (IN) | payer MEDICARE, MEDICAID ==
[~2017-12-27] VITALS: Ht 162.6 cm; Wt 60.3 kg
[~2017-12-27 17:01] MED LIST changes: +ATOR20TA86 PO
[2017-12-27] MEDS ORDERED: LORazepam 2 MG TABLET PO PRN (17:30)
[2017-12-27] MEDS ORDERED: HALOPERIDOL 5 MG TABLET PO PRN (17:30)
[2017-12-27] MEDS ORDERED: -PHARMACY VACCINE NOTE- MISC ONE (18:45)
[2017-12-27 18:54] VITALS: BP 108/59
[2017-12-27] MEDS ORDERED: CloNIDine HCL 0.1 MG TABLET PO PRN (19:45)
[2017-12-27] MEDS: ATORVASTATIN CALCIUM 20 MG TABLET PO SCH (20:58)
[2017-12-28] MEDS: CEPHALEXIN MONOHYDRATE 500 MG CAPSULE PO SCH ×3 (00:03→16:23)
[2017-12-28 06:03] VITALS: BP 138/64
[2017-12-28] MEDS: LEVOTHYROXINE SODIUM 25 MCG TABLET PO SCH (06:30)
[2017-12-28 08:10] LABS: BASOPHILS % (AUTO) 0.2 % (0.0-2.0); EOSINOPHILS % (AUTO) 1.6 % (1.0-6.0); HEMATOCRIT 34.9 % (36-46); HEMOGLOBIN 11.4 g/dL (12.0-16.0); LYMPHOCYTES % (AUTO) 11.6 % (22.0-44.0); MEAN CORPUSCULAR HEMOGLOBIN 28.6 pg (26.0-34.0); MEAN CORPUSCULAR HGB CONC 32.6 G/dL (31.0-37.0); MEAN CORPUSCULAR VOLUME 88 fL (80-100); MONOCYTES # (AUTO) 0.9 K/uL (0.1-1.0); MONOCYTES % (AUTO) 11.3 % (2.0-9.0); NEUTROPHILS # (AUTO) 6.3 K/uL (1.8-7.7); NEUTROPHILS % (AUTO) 75.3 % (40.0-70.0); PLATELET COUNT (AUTO) 178 K/uL (150-450); RED BLOOD CELL COUNT(AUTO) 3.98 MIL/uL (4.00-5.20); RED CELL DISTRIBUTION WIDTH 14.9 % (11.5-14.5)
[2017-12-28 08:28] VITALS: BP 100/55
[2017-12-28 08:42] LABS: HEMOGLOBIN A1C 5.9 % (4.5-6.2)
[2017-12-28 08:45] LABS: ALBUMIN 3.2 g/dL (3.4-5.0); BILIRUBIN,TOTAL 0.5 mg/dL (0.1-1.0); CALCIUM, TOTAL 9.1 mg/dL (8.8-10.5); CHOL/HDL RATIO 2.3 (3.9-5.7); CREATININE 1.87 mg/dL (0.60-1.30); FREE T4 (FREE THYROXINE) 0.65 ng/dL (0.76-1.46); POTASSIUM 3.4 mmol/L (3.5-5.1); THYROID STIMULATING HORMONE 3.28 uIU/mL (0.36-3.74); TOTAL PROTEIN, SERUM 7.3 g/dL (6.4-8.2)
[2017-12-28] MEDS: SULFAMETHOX/TRIMETH DS 800-160 MG/TABLET PO SCH ×2 (08:49→16:23)
[2017-12-28] MEDS: DOCUSATE SODIUM 250 MG CAPSULE PO SCH ×2 (08:49→16:23)
[2017-12-28] MEDS: BACITRACIN 28.4 GM OINTMENT TP SCH ×2 (08:49→16:24)
[2017-12-28] MEDS: OMEPRAZOLE 20 MG CAPSULE PO SCH (08:49)
[2017-12-28] MEDS: ASPIRIN 81 MG EC TABLET PO SCH (08:49)
[2017-12-28] MEDS: TIOTROPIUM BROMIDE 18 MCG/INH HANDIHALER [5] IH SCH (08:50)
[2017-12-28] MEDS ORDERED: MAG HYDROX/AL HYDROX/SIMETH ES 30 ML SUSPENSION UDCUP PO PRN (09:45)
[2017-12-28] MEDS ORDERED: MAGNESIUM HYDROXIDE SUSPENSION 30 ML UDCUP PO PRN (09:45)
[2017-12-28] MEDS ORDERED: LOPERAMIDE HCL 2 MG CAPSULE PO PRN (09:45)
[2017-12-28] MEDS ORDERED: GuaiFENesin/D-METHORPHAN [SUGAR-FREE] 200-20MG/10 ML SYRUP UDCUP PO PRN (09:45)
[2017-12-28] MEDS ORDERED: PROMETHAZINE HCL 25 MG TABLET PO PRN (09:45)
[2017-12-28] MEDS ORDERED: HydrOXYzine PAMOATE 50 MG CAPSULE PO PRN (09:45)
[2017-12-28] MEDS ORDERED: ACETAMINOPHEN 325 MG TABLET PO PRN ×2 (09:45→14:45)
[2017-12-28] MEDS: QUEtiapine FUMARATE 25 MG TABLET PO SCH ×2 (13:21→16:23)
[2017-12-28] MEDS ORDERED: LORazepam 2 MG TABLET PO PRN (13:30)
[2017-12-28] MEDS ORDERED: POTASSIUM CHLORIDE 10 MEQ ER TABLET PO ONE (14:45)
[2017-12-28 16:03] VITALS: BP 110/72
[2017-12-28] MEDS: THIAMINE HCL 100 MG TABLET PO SCH (16:23)
[2017-12-28] MEDS: ROPINIRole HCL 1 MG TABLET PO SCH (20:20)
[2017-12-28] MEDS: ATORVASTATIN CALCIUM 20 MG TABLET PO SCH (20:20)
[2017-12-28] MEDS ORDERED: QUEtiapine FUMARATE 200 MG TABLET PO SCH (21:00)
[2017-12-29] MEDS: CEPHALEXIN MONOHYDRATE 500 MG CAPSULE PO SCH ×4 (00:05→23:36)
[2017-12-29] MEDS: LEVOTHYROXINE SODIUM 25 MCG TABLET PO SCH (06:09)
[2017-12-29 06:42] VITALS: BP 100/69
[2017-12-29 08:38] LABS: HEMOGLOBIN A1C 5.8 % (4.5-6.2)
[2017-12-29 08:43] VITALS: BP 105/65
[2017-12-29] MEDS: THIAMINE HCL 100 MG TABLET PO SCH ×2 (08:53→16:33)
[2017-12-29] MEDS: PARoxetine HCL 20 MG TABLET PO SCH (08:53)
[2017-12-29] MEDS: OMEPRAZOLE 20 MG CAPSULE PO SCH (08:54)
[2017-12-29] MEDS: FOLIC ACID 1 MG TABLET PO SCH (08:54)
[2017-12-29] MEDS: QUEtiapine FUMARATE 25 MG TABLET PO SCH ×3 (08:54→16:33)
[2017-12-29] MEDS: SULFAMETHOX/TRIMETH DS 800-160 MG/TABLET PO SCH ×2 (08:54→16:35)
[2017-12-29] MEDS: ASPIRIN 81 MG EC TABLET PO SCH (08:54)
[2017-12-29] MEDS: TIOTROPIUM BROMIDE 18 MCG/INH HANDIHALER [5] IH SCH (08:54)
[2017-12-29] MEDS: NALTREXONE HCL 50 MG TABLET PO SCH (08:54)
[2017-12-29] MEDS: DOCUSATE SODIUM 250 MG CAPSULE PO SCH ×2 (08:54→16:33)
[2017-12-29] MEDS: MULTIVITAMINS WITH MINERALS, THERAPEUTIC TABLET PO SCH (08:55)
[2017-12-29] MEDS: BACITRACIN 28.4 GM OINTMENT TP SCH ×2 (08:55→16:42)
[2017-12-29 08:59] LABS: CHOL/HDL RATIO 2.4 (3.9-5.7); POTASSIUM 3.9 mmol/L (3.5-5.1); THYROID STIMULATING HORMONE 3.65 uIU/mL (0.36-3.74)
[2017-12-29 16:36] VITALS: BP 122/95
[2017-12-29] MEDS: ATORVASTATIN CALCIUM 20 MG TABLET PO SCH (20:20)
[2017-12-29] MEDS: QUEtiapine FUMARATE 300 MG TABLET PO SCH (20:20)
[2017-12-29] MEDS: ROPINIRole HCL 1 MG TABLET PO SCH (20:20)
[2017-12-30 05:48] VITALS: BP 117/74
[2017-12-30] MEDS: LEVOTHYROXINE SODIUM 25 MCG TABLET PO SCH (06:36)
[2017-12-30] MEDS: SULFAMETHOX/TRIMETH DS 800-160 MG/TABLET PO SCH ×2 (08:15→17:21)
[2017-12-30] MEDS: NALTREXONE HCL 50 MG TABLET PO SCH (08:15)
[2017-12-30] MEDS: ASPIRIN 81 MG EC TABLET PO SCH (08:15)
[2017-12-30] MEDS: MULTIVITAMINS WITH MINERALS, THERAPEUTIC TABLET PO SCH (08:15)
[2017-12-30] MEDS: FOLIC ACID 1 MG TABLET PO SCH (08:15)
[2017-12-30] MEDS: THIAMINE HCL 100 MG TABLET PO SCH ×2 (08:15→17:21)
[2017-12-30] MEDS: DOCUSATE SODIUM 250 MG CAPSULE PO SCH ×2 (08:16→17:21)
[2017-12-30] MEDS: OMEPRAZOLE 20 MG CAPSULE PO SCH (08:16)
[2017-12-30] MEDS: PARoxetine HCL 20 MG TABLET PO SCH (08:16)
[2017-12-30] MEDS: QUEtiapine FUMARATE 25 MG TABLET PO SCH ×3 (08:16→17:22)
[2017-12-30] MEDS: CEPHALEXIN MONOHYDRATE 500 MG CAPSULE PO SCH ×2 (08:16→16:22)
[2017-12-30] MEDS: TIOTROPIUM BROMIDE 18 MCG/INH HANDIHALER [5] IH SCH (08:17)
[2017-12-30] MEDS: BACITRACIN 28.4 GM OINTMENT TP SCH ×2 (08:17→17:25)
[2017-12-30 08:46] VITALS: BP 124/68
[2017-12-30 09:00] LABS: ALBUMIN 3.4 g/dL (3.4-5.0); CALCIUM, TOTAL 9.6 mg/dL (8.8-10.5); CREATININE 1.78 mg/dL (0.60-1.30); PHOSPHORUS 3.2 mg/dL (2.5-4.9); POTASSIUM 4.3 mmol/L (3.5-5.1)
[2017-12-30 09:04] LABS: CALCIUM, TOTAL 9.7 mg/dL (8.8-10.5); CREATININE 1.78 mg/dL (0.60-1.30); POTASSIUM 4.3 mmol/L (3.5-5.1)
[2017-12-30 16:42] VITALS: BP 126/60
[2017-12-30] MEDS: FERROUS SULFATE 325 MG EC TABLET PO SCH (17:21)
[2017-12-30] MEDS: ATORVASTATIN CALCIUM 20 MG TABLET PO SCH (20:32)
[2017-12-30] MEDS: QUEtiapine FUMARATE 300 MG TABLET PO SCH (20:32)
[2017-12-30] MEDS: ROPINIRole HCL 1 MG TABLET PO SCH (20:32)
[2017-12-31] MEDS: CEPHALEXIN MONOHYDRATE 500 MG CAPSULE PO SCH ×3 (00:27→16:04)
[2017-12-31 04:53] VITALS: BP 130/70
[2017-12-31] MEDS: LEVOTHYROXINE SODIUM 25 MCG TABLET PO SCH (06:04)
[2017-12-31] MEDS: FERROUS SULFATE 325 MG EC TABLET PO SCH ×2 (06:22→17:07)
[2017-12-31 08:00] VITALS: BP 132/74
[2017-12-31] MEDS: TIOTROPIUM BROMIDE 18 MCG/INH HANDIHALER [5] IH SCH (08:38)
[2017-12-31] MEDS: THIAMINE HCL 100 MG TABLET PO SCH ×2 (08:38→17:07)
[2017-12-31] MEDS: PARoxetine HCL 20 MG TABLET PO SCH (08:38)
[2017-12-31] MEDS: OMEPRAZOLE 20 MG CAPSULE PO SCH (08:38)
[2017-12-31] MEDS: FOLIC ACID 1 MG TABLET PO SCH (08:39)
[2017-12-31] MEDS: DOCUSATE SODIUM 250 MG CAPSULE PO SCH ×2 (08:39→17:07)
[2017-12-31] MEDS: NALTREXONE HCL 50 MG TABLET PO SCH (08:39)
[2017-12-31] MEDS: MULTIVITAMINS WITH MINERALS, THERAPEUTIC TABLET PO SCH (08:39)
[2017-12-31] MEDS: QUEtiapine FUMARATE 25 MG TABLET PO SCH ×2 (08:39→12:19)
[2017-12-31] MEDS: SULFAMETHOX/TRIMETH DS 800-160 MG/TABLET PO SCH ×2 (08:39→17:07)
[2017-12-31] MEDS: BACITRACIN 28.4 GM OINTMENT TP SCH ×2 (08:39→17:08)
[2017-12-31] MEDS: ASPIRIN 81 MG EC TABLET PO SCH (08:40)
[2017-12-31 16:13] VITALS: BP 113/85
[2017-12-31] MEDS: ATORVASTATIN CALCIUM 20 MG TABLET PO SCH (20:12)
[2017-12-31] MEDS ORDERED: QUEtiapine FUMARATE 300 MG TABLET PO SCH (21:00)
[2018-01-01] MEDS: CEPHALEXIN MONOHYDRATE 500 MG CAPSULE PO SCH ×3 (00:13→16:57)
[2018-01-01 05:55] VITALS: BP 114/88
[2018-01-01] MEDS: LEVOTHYROXINE SODIUM 25 MCG TABLET PO SCH (06:41)
[2018-01-01] MEDS: FERROUS SULFATE 325 MG EC TABLET PO SCH ×2 (07:07→16:56)
[2018-01-01] MEDS: TIOTROPIUM BROMIDE 18 MCG/INH HANDIHALER [5] IH SCH (08:34)
[2018-01-01] MEDS: ASPIRIN 81 MG EC TABLET PO SCH (08:35)
[2018-01-01] MEDS: SULFAMETHOX/TRIMETH DS 800-160 MG/TABLET PO SCH ×2 (08:35→16:56)
[2018-01-01] MEDS: MULTIVITAMINS WITH MINERALS, THERAPEUTIC TABLET PO SCH (08:35)
[2018-01-01] MEDS: DOCUSATE SODIUM 250 MG CAPSULE PO SCH ×2 (08:36→16:56)
[2018-01-01] MEDS: THIAMINE HCL 100 MG TABLET PO SCH ×2 (08:36→16:56)
[2018-01-01] MEDS: FOLIC ACID 1 MG TABLET PO SCH (08:36)
[2018-01-01] MEDS: BACITRACIN 28.4 GM OINTMENT TP SCH ×2 (08:36→16:57)
[2018-01-01] MEDS: OMEPRAZOLE 20 MG CAPSULE PO SCH (08:36)
[2018-01-01 12:32] VITALS: BP 134/75
[2018-01-01] MEDS: OLANZapine 10 MG RAPDIS TABLET PO SCH (20:28)
[2018-01-01] MEDS: ATORVASTATIN CALCIUM 20 MG TABLET PO SCH (20:29)
[2018-01-01] MEDS ORDERED: DIVALPROEX SODIUM 500 MG ER TABLET PO SCH (21:00)
[2018-01-02] MEDS: CEPHALEXIN MONOHYDRATE 500 MG CAPSULE PO SCH ×3 (00:08→16:19)
[2018-01-02] MEDS: FERROUS SULFATE 325 MG EC TABLET PO SCH ×2 (06:16→17:16)
[2018-01-02] MEDS: LEVOTHYROXINE SODIUM 25 MCG TABLET PO SCH (06:16)
[2018-01-02 06:59] VITALS: BP 136/72
[2018-01-02 08:20] VITALS: BP 110/82
[2018-01-02] MEDS: OMEPRAZOLE 20 MG CAPSULE PO SCH (08:52)
[2018-01-02] MEDS: THIAMINE HCL 100 MG TABLET PO SCH ×2 (08:52→16:20)
[2018-01-02] MEDS: DOCUSATE SODIUM 250 MG CAPSULE PO SCH ×2 (08:52→16:19)
[2018-01-02] MEDS: SULFAMETHOX/TRIMETH DS 800-160 MG/TABLET PO SCH ×2 (08:52→16:19)
[2018-01-02] MEDS: ASPIRIN 81 MG EC TABLET PO SCH (08:52)
[2018-01-02] MEDS: MULTIVITAMINS WITH MINERALS, THERAPEUTIC TABLET PO SCH (08:53)
[2018-01-02] MEDS: FOLIC ACID 1 MG TABLET PO SCH (08:53)
[2018-01-02] MEDS: BACITRACIN 28.4 GM OINTMENT TP SCH ×2 (08:58→17:16)
[2018-01-02] MEDS: TIOTROPIUM BROMIDE 18 MCG/INH HANDIHALER [5] IH SCH (08:58)
[2018-01-02] MEDS: LORazepam 0.5 MG TABLET PO PRN (13:09)
[2018-01-02] MEDS: OLANZapine 5 MG RAPDIS TABLET PO PRN (13:09)
[2018-01-02 16:06] VITALS: BP 135/82
[2018-01-02] MEDS: VALPROIC ACID 250 MG/5 ML SYRUP UDCUP PO SCH (20:17)
[2018-01-02] MEDS: OLANZapine 10 MG RAPDIS TABLET PO SCH (20:17)
[2018-01-02] MEDS: ATORVASTATIN CALCIUM 20 MG TABLET PO SCH (20:18)
[2018-01-02] MEDS: ZOLPIDEM TARTRATE 10 MG TABLET PO PRN (22:08)
[2018-01-03 05:50] VITALS: BP 130/79
[2018-01-03] MEDS: IBUPROFEN 400 MG TABLET PO PRN (05:55)
[2018-01-03] MEDS: LEVOTHYROXINE SODIUM 25 MCG TABLET PO SCH (06:33)
[2018-01-03] MEDS: FERROUS SULFATE 325 MG EC TABLET PO SCH ×2 (06:34→16:48)
[2018-01-03] MEDS: FOLIC ACID 1 MG TABLET PO SCH (08:37)
[2018-01-03] MEDS: TIOTROPIUM BROMIDE 18 MCG/INH HANDIHALER [5] IH SCH (08:37)
[2018-01-03] MEDS: OMEPRAZOLE 20 MG CAPSULE PO SCH (08:37)
[2018-01-03] MEDS: CEPHALEXIN MONOHYDRATE 500 MG CAPSULE PO SCH ×4 (08:38→23:53)
[2018-01-03] MEDS: MULTIVITAMINS WITH MINERALS, THERAPEUTIC TABLET PO SCH (08:38)
[2018-01-03] MEDS: ASPIRIN 81 MG EC TABLET PO SCH (08:38)
[2018-01-03] MEDS: DOCUSATE SODIUM 250 MG CAPSULE PO SCH ×2 (08:38→16:19)
[2018-01-03] MEDS: SULFAMETHOX/TRIMETH DS 800-160 MG/TABLET PO SCH ×2 (08:38→16:19)
[2018-01-03] MEDS: THIAMINE HCL 100 MG TABLET PO SCH ×2 (08:38→16:18)
[2018-01-03 08:39] VITALS: BP 133/68
[2018-01-03] MEDS: LORazepam 0.5 MG TABLET PO PRN ×2 (08:43→13:29)
[2018-01-03] MEDS: BACITRACIN 28.4 GM OINTMENT TP SCH ×2 (08:45→16:19)
[2018-01-03] MEDS: OLANZapine 5 MG RAPDIS TABLET PO PRN (13:38)
[2018-01-03 16:13] VITALS: BP 147/100
[2018-01-03] MEDS: VALPROIC ACID 250 MG/5 ML SYRUP UDCUP PO SCH (21:11)
[2018-01-03] MEDS: ATORVASTATIN CALCIUM 20 MG TABLET PO SCH (21:11)
[2018-01-03] MEDS: OLANZapine 10 MG RAPDIS TABLET PO SCH (21:12)
[2018-01-03] MEDS: ZOLPIDEM TARTRATE 10 MG TABLET PO PRN (23:53)
[2018-01-04] MEDS: FERROUS SULFATE 325 MG EC TABLET PO SCH ×2 (06:50→17:08)
[2018-01-04] MEDS: LEVOTHYROXINE SODIUM 25 MCG TABLET PO SCH (06:50)
[2018-01-04 07:05] VITALS: BP 130/97
[2018-01-04] MEDS: THIAMINE HCL 100 MG TABLET PO SCH ×2 (08:10→17:08)
[2018-01-04] MEDS: MULTIVITAMINS WITH MINERALS, THERAPEUTIC TABLET PO SCH (08:10)
[2018-01-04] MEDS: FOLIC ACID 1 MG TABLET PO SCH (08:10)
[2018-01-04] MEDS: DOCUSATE SODIUM 250 MG CAPSULE PO SCH ×2 (08:10→17:08)
[2018-01-04] MEDS: LORazepam 0.5 MG TABLET PO PRN ×3 (08:10→17:22)
[2018-01-04] MEDS: ASPIRIN 81 MG EC TABLET PO SCH (08:10)
[2018-01-04] MEDS: AmLODIPine BESYLATE 2.5 MG TABLET PO SCH (08:10)
[2018-01-04] MEDS: SULFAMETHOX/TRIMETH DS 800-160 MG/TABLET PO SCH ×2 (08:10→17:09)
[2018-01-04] MEDS: CEPHALEXIN MONOHYDRATE 500 MG CAPSULE PO SCH ×2 (08:10→16:16)
[2018-01-04] MEDS: TIOTROPIUM BROMIDE 18 MCG/INH HANDIHALER [5] IH SCH (08:10)
[2018-01-04] MEDS: OMEPRAZOLE 20 MG CAPSULE PO SCH (08:10)
[2018-01-04] MEDS: BACITRACIN 28.4 GM OINTMENT TP SCH ×2 (08:15→17:09)
[2018-01-04 08:26] VITALS: BP 142/96
[2018-01-04 16:19] VITALS: BP 131/86
[2018-01-04] MEDS: VALPROIC ACID 250 MG/5 ML SYRUP UDCUP PO SCH (20:32)
[2018-01-04] MEDS: ATORVASTATIN CALCIUM 20 MG TABLET PO SCH (20:32)
[2018-01-04] MEDS ORDERED: OLANZapine 5 MG RAPDIS TABLET PO SCH (21:00)
[2018-01-04] MEDS: ZOLPIDEM TARTRATE 10 MG TABLET PO PRN (21:13)
[2018-01-05] VITALS (10 sets, daily range): BP systolic 107–140; BP diastolic 61–100
[2018-01-05] MEDS: CEPHALEXIN MONOHYDRATE 500 MG CAPSULE PO SCH ×3 (00:05→16:04)
[2018-01-05] MEDS: LEVOTHYROXINE SODIUM 25 MCG TABLET PO SCH (05:41)
[2018-01-05] MEDS: FERROUS SULFATE 325 MG EC TABLET PO SCH ×2 (06:26→17:11)
[2018-01-05] MEDS: ASPIRIN 81 MG EC TABLET PO SCH (08:09)
[2018-01-05] MEDS: FOLIC ACID 1 MG TABLET PO SCH (08:09)
[2018-01-05] MEDS: LORazepam 0.5 MG TABLET PO PRN ×2 (08:09→17:11)
[2018-01-05] MEDS: THIAMINE HCL 100 MG TABLET PO SCH ×2 (08:09→17:11)
[2018-01-05] MEDS: DOCUSATE SODIUM 250 MG CAPSULE PO SCH ×2 (08:09→17:11)
[2018-01-05] MEDS: SULFAMETHOX/TRIMETH DS 800-160 MG/TABLET PO SCH ×2 (08:09→17:11)
[2018-01-05] MEDS: OMEPRAZOLE 20 MG CAPSULE PO SCH (08:09)
[2018-01-05] MEDS: MULTIVITAMINS WITH MINERALS, THERAPEUTIC TABLET PO SCH (08:09)
[2018-01-05] MEDS: TIOTROPIUM BROMIDE 18 MCG/INH HANDIHALER [5] IH SCH (08:10)
[2018-01-05] MEDS: BACITRACIN 28.4 GM OINTMENT TP SCH ×2 (08:10→17:11)
[2018-01-05] MEDS: AmLODIPine BESYLATE 2.5 MG TABLET PO SCH (08:10)
[2018-01-05] MEDS: OLANZapine 5 MG RAPDIS TABLET PO PRN (10:03)
[2018-01-05] MEDS: IBUPROFEN 400 MG TABLET PO PRN (12:48)
[2018-01-05] MEDS: VALPROIC ACID 250 MG/5 ML SYRUP UDCUP PO SCH (20:10)
[2018-01-05] MEDS: ATORVASTATIN CALCIUM 20 MG TABLET PO SCH (20:10)
[2018-01-05] MEDS: OLANZapine 10 MG RAPDIS TABLET PO SCH (20:10)
[2018-01-06] MEDS: CEPHALEXIN MONOHYDRATE 500 MG CAPSULE PO SCH ×3 (00:01→16:12)
[2018-01-06] MEDS: LORazepam 0.5 MG TABLET PO PRN (02:59)
[2018-01-06 03:03] VITALS: BP 140/74
[2018-01-06 03:12] VITALS: BP 137/72
[2018-01-06] MEDS: LEVOTHYROXINE SODIUM 25 MCG TABLET PO SCH (06:08)
[2018-01-06] MEDS: FERROUS SULFATE 325 MG EC TABLET PO SCH ×2 (06:08→16:55)
[2018-01-06] MEDS: ASPIRIN 81 MG EC TABLET PO SCH (08:28)
[2018-01-06] MEDS: DOCUSATE SODIUM 250 MG CAPSULE PO SCH ×2 (08:28→16:55)
[2018-01-06] MEDS: FOLIC ACID 1 MG TABLET PO SCH (08:28)
[2018-01-06] MEDS: THIAMINE HCL 100 MG TABLET PO SCH ×2 (08:28→16:55)
[2018-01-06] MEDS: SULFAMETHOX/TRIMETH DS 800-160 MG/TABLET PO SCH ×2 (08:28→16:55)
[2018-01-06] MEDS: MULTIVITAMINS WITH MINERALS, THERAPEUTIC TABLET PO SCH (08:28)
[2018-01-06] MEDS: OMEPRAZOLE 20 MG CAPSULE PO SCH (08:28)
[2018-01-06] MEDS: AmLODIPine BESYLATE 2.5 MG TABLET PO SCH (08:29)
[2018-01-06] MEDS: OLANZapine 5 MG RAPDIS TABLET PO PRN (08:32)
[2018-01-06] MEDS: TIOTROPIUM BROMIDE 18 MCG/INH HANDIHALER [5] IH SCH (08:33)
[2018-01-06] MEDS: BACITRACIN 28.4 GM OINTMENT TP SCH ×2 (08:37→16:56)
[2018-01-06 08:42] VITALS: BP 130/81
[2018-01-06] MEDS: IBUPROFEN 400 MG TABLET PO PRN (13:15)
[2018-01-06 16:15] VITALS: BP 137/72
[2018-01-06] MEDS: VALPROIC ACID 250 MG/5 ML SYRUP UDCUP PO SCH (20:30)
[2018-01-06] MEDS: OLANZapine 10 MG RAPDIS TABLET PO SCH (20:30)
[2018-01-06] MEDS: ATORVASTATIN CALCIUM 20 MG TABLET PO SCH (20:30)
[2018-01-07] MEDS: ZOLPIDEM TARTRATE 10 MG TABLET PO PRN ×2 (00:33→20:58)
[2018-01-07 04:10] VITALS: BP 135/90
[2018-01-07] MEDS: LEVOTHYROXINE SODIUM 25 MCG TABLET PO SCH (06:10)
[2018-01-07] MEDS: FERROUS SULFATE 325 MG EC TABLET PO SCH ×2 (06:51→17:12)
[2018-01-07] MEDS: DOCUSATE SODIUM 250 MG CAPSULE PO SCH ×2 (08:29→17:12)
[2018-01-07] MEDS: MULTIVITAMINS WITH MINERALS, THERAPEUTIC TABLET PO SCH (08:29)
[2018-01-07] MEDS: TIOTROPIUM BROMIDE 18 MCG/INH HANDIHALER [5] IH SCH (08:29)
[2018-01-07] MEDS: OMEPRAZOLE 20 MG CAPSULE PO SCH (08:29)
[2018-01-07] MEDS: AmLODIPine BESYLATE 2.5 MG TABLET PO SCH (08:30)
[2018-01-07] MEDS: FOLIC ACID 1 MG TABLET PO SCH (08:30)
[2018-01-07] MEDS: ASPIRIN 81 MG EC TABLET PO SCH (08:30)
[2018-01-07] MEDS: THIAMINE HCL 100 MG TABLET PO SCH (08:30)
[2018-01-07] MEDS: BACITRACIN 28.4 GM OINTMENT TP SCH ×2 (08:30→17:12)
[2018-01-07] MEDS: LORazepam 0.5 MG TABLET PO PRN ×2 (10:12→17:12)
[2018-01-07 11:48] VITALS: BP 140/72
[2018-01-07] MEDS ORDERED: OLAN10TA22 PO (15:52)
[2018-01-07] MEDS ORDERED: VALP250S23 PO (15:52)
[2018-01-07 16:22] VITALS: BP 148/81
[2018-01-07] MEDS: OLANZapine 5 MG RAPDIS TABLET PO PRN (17:12)
[2018-01-07] MEDS: VALPROIC ACID 250 MG/5 ML SYRUP UDCUP PO SCH (20:58)
[2018-01-07] MEDS: ATORVASTATIN CALCIUM 20 MG TABLET PO SCH (20:58)
[2018-01-07] MEDS: OLANZapine 10 MG RAPDIS TABLET PO SCH (20:58)
[2018-01-08 04:51] VITALS: BP 142/79
[2018-01-08] MEDS: FERROUS SULFATE 325 MG EC TABLET PO SCH ×2 (06:15→16:09)
[2018-01-08] MEDS: LEVOTHYROXINE SODIUM 25 MCG TABLET PO SCH (06:15)
[2018-01-08] MEDS: AmLODIPine BESYLATE 2.5 MG TABLET PO SCH (08:07)
[2018-01-08] MEDS: TIOTROPIUM BROMIDE 18 MCG/INH HANDIHALER [5] IH SCH (08:08)
[2018-01-08] MEDS: BACITRACIN 28.4 GM OINTMENT TP SCH ×2 (08:09→16:10)
[2018-01-08] MEDS: OMEPRAZOLE 20 MG CAPSULE PO SCH (08:09)
[2018-01-08 08:17] VITALS: BP 159/88
[2018-01-08] MEDS: ASPIRIN 81 MG EC TABLET PO SCH (08:35)
[2018-01-08] MEDS: OLANZapine 5 MG RAPDIS TABLET PO PRN ×2 (08:35→13:08)
[2018-01-08] MEDS: LORazepam 0.5 MG TABLET PO PRN ×2 (08:35→13:08)
[2018-01-08] MEDS: MULTIVITAMINS WITH MINERALS, THERAPEUTIC TABLET PO SCH (08:35)
[2018-01-08] MEDS: DOCUSATE SODIUM 250 MG CAPSULE PO SCH ×2 (08:35→16:09)
[2018-01-08] MEDS ORDERED: AMLO2.5T PO (10:46)
[2018-01-08] MEDS ORDERED: FERR-89 PO (10:46)
[2018-01-08 16:13] VITALS: BP 138/81
== END 2018-01-08 18:35 | disposition home or self-care (01) | DRG 885 ==
LOC: B3A 17:36
PROVIDERS: ADMIT Psychiatry & Neurology Psychiatry; ATTEND Psychiatry & Neurology Psychiatry
DX: F29 Unspecified psychosis not due to a substance or known physiological condition (principal); F25.9 Schizoaffective disorder, unspecified; J44.9 Chronic obstructive pulmonary disease, unspecified; L03.115 Cellulitis of right lower limb; D64.9 Anemia, unspecified; E03.9 Hypothyroidism, unspecified; E78.5 Hyperlipidemia, unspecified; F14.10 Cocaine abuse, uncomplicated; E87.6 Hypokalemia; F17.210 Nicotine dependence, cigarettes, uncomplicated; I10 Essential (primary) hypertension; K21.9 Gastro-esophageal reflux disease without esophagitis; G24.01 Drug induced subacute dyskinesia; K59.09 Other constipation; L84 Corns and callosities; M19.90 Unspecified osteoarthritis, unspecified site; Z91.19 Patient's noncompliance with other medical treatment and regimen; Z88.1 Allergy status to other antibiotic agents
CPT/HCPCS: 83036; 84132; 84439; 84443

== ENCOUNTER → 2018-06-29 | Outpatient (CLI) | payer MEDICARE, OTHER ==
[~2018-06-29] MED LIST changes: +AMLO2.5T PO; -BUPR-47 PO; -DOCU250C91 PO; +FERR-89 PO; -FLUT1BLS IH; -HYDR25TA PO; -LOSA50TA37 PO; -METO50 PO; -NALT50TA PO; +OLAN10TA22 PO; -OMEP20 PO; -PARO-37 PO; -QUET25TA PO; -ROPI1TAB38 PO; +VALP250S23 PO
[2018-06-29 16:11] LABS: BASOPHILS % (AUTO) 0.3 % (0.0-2.0); EOSINOPHILS % (AUTO) 6.8 % (1.0-6.0); HEMATOCRIT 36.9 % (36-46); HEMOGLOBIN 12.4 g/dL (12.0-16.0); LYMPHOCYTES # (AUTO) 2.1 K/uL (1.0-4.8); MEAN CORPUSCULAR HEMOGLOBIN 32.3 pg (26.0-34.0); MEAN CORPUSCULAR HGB CONC 33.7 G/dL (31.0-37.0); MEAN CORPUSCULAR VOLUME 96 fL (80-100); MONOCYTES # (AUTO) 0.4 K/uL (0.1-1.0); MONOCYTES % (AUTO) 5.6 % (2.0-9.0); NEUTROPHILS % (AUTO) 57.3 % (40.0-70.0); PLATELET COUNT (AUTO) 144 K/uL (150-450); RED BLOOD CELL COUNT(AUTO) 3.85 MIL/uL (4.00-5.20)
[2018-06-29 16:36] LABS: CHOL/HDL RATIO 2.3 (3.9-5.7); FREE THYROXINE INDEX 1.8 (1.4-4.5); THYROID STIMULATING HORMONE 5.43 uIU/mL (0.36-3.74)
== END | disposition home or self-care (01) ==
LOC: LABMN 13:00
PROVIDERS: ATTEND Psychiatry & Neurology Psychiatry
DX: F25.9 Schizoaffective disorder, unspecified (principal); E78.00 Pure hypercholesterolemia, unspecified; I10 Essential (primary) hypertension; J44.9 Chronic obstructive pulmonary disease, unspecified; K21.9 Gastro-esophageal reflux disease without esophagitis; E03.9 Hypothyroidism, unspecified; F32.9 Major depressive disorder, single episode, unspecified; F41.9 Anxiety disorder, unspecified
CPT/HCPCS: 84436; 84443; 84479

== ENCOUNTER 2018-09-29 15:22 | Emergency (ER) | payer MEDICARE, OTHER ==
[~2018-09-29] VITALS: Ht 162.6 cm; Wt 72.7 kg
[~2018-09-29 15:22] MED LIST changes: -AMLO2.5T PO; +AMLO2.5T3 PO
[2018-09-29 19:36] VITALS: BP 155/81
== END 2018-09-29 20:00 | disposition home or self-care (01) ==
LOC: EMS 15:24
DX: S22.41XA Multiple fractures of ribs, right side, initial encounter for closed fracture (principal); J44.9 Chronic obstructive pulmonary disease, unspecified; I10 Essential (primary) hypertension; F20.9 Schizophrenia, unspecified; F41.9 Anxiety disorder, unspecified; F14.90 Cocaine use, unspecified, uncomplicated; F15.90 Other stimulant use, unspecified, uncomplicated; F17.210 Nicotine dependence, cigarettes, uncomplicated; Z88.1 Allergy status to other antibiotic agents; W18.39XA Other fall on same level, initial encounter; Y93.89 Activity, other specified; Y92.89 Other specified places as the place of occurrence of the external cause; Y99.8 Other external cause status
CPT/HCPCS: 71101; 71250; 99284; G0238

== ENCOUNTER 2020-01-20 15:58 | Emergency (ER) | payer MEDICARE, OTHER ==
[~2020-01-20] VITALS: Ht 170.2 cm; Wt 72.7 kg
[~2020-01-20 15:58] MED LIST changes: -AMLO2.5T3 PO; +AMLO2.5T4 PO; +ASPI-1111 PO; -ASPI-1182 PO
[2020-01-20] MEDS ORDERED: QUET100T33 PO (16:52)
[2020-01-20] MEDS ORDERED: METO25 PO (16:52)
[2020-01-20] MEDS ORDERED: PRAZ1 PO (16:52)
[2020-01-20] MEDS ORDERED: PANT20TA12 PO (16:52)
[2020-01-20] MEDS ORDERED: TRAM50TA4 PO (16:52)
[2020-01-20] MEDS ORDERED: TRAZ150 PO (16:52)
[2020-01-20] MEDS ORDERED: LOSA-88 PO (16:52)
[2020-01-20] MEDS ORDERED: BUPR-93 PO (16:52)
[2020-01-20] MEDS ORDERED: SODIUM CHLORIDE 0.9% 2,200 ML IV ONE (17:37)
[2020-01-20] MEDS ORDERED: 0.9% SODIUM CHLORIDE 10 ML SYRINGE IVP PRN (17:45)
[2020-01-20] MEDS ORDERED: ONDANSETRON HCL 4 MG/2 ML VIAL IVP ONE (17:45)
[2020-01-20] MEDS ORDERED: TRAZ-252 PO (17:56)
[2020-01-20] MEDS ORDERED: METOCLOPRAMIDE HCL 5 MG/ML 2 ML VIAL IVP ONE (18:30)
[2020-01-20 18:36] LABS: BASOPHILS % (AUTO) 1.2 % (0.0-2.0); EOSINOPHILS % (AUTO) 6.5 % (1.0-6.0); HEMATOCRIT 39.2 % (36-46); HEMOGLOBIN 12.4 g/dL (12.0-16.0); LYMPHOCYTES # (AUTO) 1.9 K/uL (1.0-4.8); LYMPHOCYTES % (AUTO) 20.3 % (22.0-44.0); MEAN CORPUSCULAR HEMOGLOBIN 28.1 pg (26.0-34.0); MEAN CORPUSCULAR HGB CONC 31.7 G/dL (31.0-37.0); MEAN CORPUSCULAR VOLUME 89 fL (80-100); MONOCYTES # (AUTO) 0.5 K/uL (0.1-1.0); MONOCYTES % (AUTO) 5.3 % (2.0-9.0); NEUTROPHILS # (AUTO) 6.4 K/uL (1.8-7.7); NEUTROPHILS % (AUTO) 66.7 % (40.0-70.0); PLATELET COUNT (AUTO) 400 K/uL (150-450); RED BLOOD CELL COUNT(AUTO) 4.43 MIL/uL (4.00-5.20); RED CELL DISTRIBUTION WIDTH 15.1 % (11.5-14.5)
[2020-01-20] MEDS ORDERED: PANTOPRAZOLE SODIUM 40 MG/VIAL IVP ONE (18:45)
[2020-01-20 18:48] LABS: PROTHROMBIN TIME 10.7 SEC (9.4-11.6)
[2020-01-20 18:49] LABS: CALCIUM, TOTAL 10.1 mg/dL (8.8-10.5); CREATININE 1.61 mg/dL (0.60-1.30); POTASSIUM 4.8 mmol/L (3.5-5.1)
[2020-01-20 18:55] LABS: ALBUMIN 3.5 g/dL (3.4-5.0); BILIRUBIN,TOTAL 0.2 mg/dL (0.1-1.0); TOTAL PROTEIN, SERUM 7.9 g/dL (6.4-8.2)
[2020-01-20 18:57] LABS: LACTIC ACID 1.7 mmol/L (0.4-2.0)
[2020-01-20 23:36] VITALS: BP 156/81
== END 2020-01-20 23:40 | disposition home or self-care (01) ==
LOC: EMS 16:00
DX: R10.9 Unspecified abdominal pain (principal); R11.2 Nausea with vomiting, unspecified; F17.210 Nicotine dependence, cigarettes, uncomplicated; I10 Essential (primary) hypertension; J44.9 Chronic obstructive pulmonary disease, unspecified; Z90.49 Acquired absence of other specified parts of digestive tract
CPT/HCPCS: 36415; 71045; 74176; 80053; 83605; 83880; 84484; 85025; 85610; 93005; 96361; 96374; 96375; 99285; C9113; J2405; J2765; J7030

== ENCOUNTER 2025-02-27 11:06 | Day surgery (SDC) | payer MEDICARE, OTHER ==
[~2025-02-27 11:06] MED LIST changes: -AMLO2.5T4 PO; +AMLO2.5T96 PO; -ASPI-1111 PO; +ASPI-1444 PO; +ATOR20TA PO; -ATOR20TA86 PO; +ATROPINE SULFATE 0.1 MG/ML 10 ML SYRINGE IVP ONE; +CLON0.5T4 PO; +DONE-52 PO; +DiphenhydrAMINE HCL 50 MG/ML VIAL ONE; +EPINEPHrine 1:10,000 [1 MG/10 ML] SYRINGE ONE; +ESCI20TA37 PO; -FERR-89 PO; +FERR325T27 PO; +FLUMAZENIL 0.1 MG/ML 5 ML VIAL IVP ONE; +GABA-529 PO; +LOSA-382 PO; +MEMA5TAB16 PO; +METO25 PO; +NALOXONE HCL 0.4 MG/ML VIAL ONE; -OLAN10TA22 PO; +OLAN5TAB77 PO; +PANT20TA18 PO; +PRAZ1 PO; +PRAZ1CAP5 PO; +SODIUM CHLORIDE 0.9% 1,000 ML IV ONE; +SODIUM CHLORIDE 0.9% 1,000 ML ONE; +SODIUM TETRADECYL SULFATE 3% 60 MG/2 ML VIAL IVP ONE; -VALP250S23 PO
== END 2025-02-27 12:05 ==
LOC: SURGERY 11:06
PROVIDERS: ATTEND Internal Medicine Gastroenterology
DX: K80.50 Calculus of bile duct without cholangitis or cholecystitis without obstruction (principal); Z53.8 Procedure and treatment not carried out for other reasons
CPT/HCPCS: J0461; J1200; J0171; J3490 ×2; J2310; J7030

== ENCOUNTER 2025-03-07 10:55 | Day surgery (SDC) | payer MEDICARE, OTHER ==
[~2025-03-07] VITALS: Ht 170.2 cm; Wt 70.9 kg
[~2025-03-07 10:55] MED LIST changes: -ASPI-1444 PO; -ATROPINE SULFATE 0.1 MG/ML 10 ML SYRINGE IVP ONE; +DEXAMETHASONE SOD PHOS 4 MG/ML VIAL ONE; -DONE-52 PO; -DiphenhydrAMINE HCL 50 MG/ML VIAL ONE; -EPINEPHrine 1:10,000 [1 MG/10 ML] SYRINGE ONE; -FERR325T27 PO; -FLUMAZENIL 0.1 MG/ML 5 ML VIAL IVP ONE; +FentaNYL CITRATE PF 100 MCG/2 ML VIAL ONE; -GABA-529 PO; +GLYCOPYRROLATE 0.2 MG/ML VIAL ONE; -LEVO25TA9 PO; +LIDOCAINE/PF 2% 5 ML VIAL ONE; -NALOXONE HCL 0.4 MG/ML VIAL ONE; +ONDANSETRON HCL 4 MG/2 ML VIAL ONE; -PRAZ1 PO; -PRAZ1CAP5 PO; +PROPOFOL 1% 20 ML VIAL IVP ONE; +ROCURONIUM BROMIDE 10 MG/ML 5 ML VIAL ONE; -SODIUM CHLORIDE 0.9% 1,000 ML IV ONE; -SODIUM TETRADECYL SULFATE 3% 60 MG/2 ML VIAL IVP ONE; +SUGAMMADEX SODIUM 200 MG/2 ML VIAL IVP ONE
[2025-03-07] MEDS ORDERED: TRIAMCINOLONE ACETONIDE 40 MG/ML VIAL IM ONE (11:15)
[2025-03-07 12:03] LABS: BASOPHILS % (AUTO) 0.9 % (0.0-2.0); EOSINOPHILS % (AUTO) 10.7 % (1.0-6.0); HEMATOCRIT 37.9 % (36-46); HEMOGLOBIN 12.1 g/dL (12.0-16.0); LYMPHOCYTES # (AUTO) 1.6 K/uL (1.0-4.8); MEAN CORPUSCULAR HEMOGLOBIN 28.7 pg (26.0-34.0); MEAN CORPUSCULAR HGB CONC 31.8 G/dL (31.0-37.0); MEAN CORPUSCULAR VOLUME 90 fL (80-100); MONOCYTES # (AUTO) 0.4 K/uL (0.1-1.0); MONOCYTES % (AUTO) 6.7 % (2.0-9.0); NEUTROPHILS # (AUTO) 3.6 K/uL (1.8-7.7); NEUTROPHILS % (AUTO) 56.7 % (40.0-70.0); PLATELET COUNT (AUTO) 181 K/uL (150-450); RED BLOOD CELL COUNT(AUTO) 4.21 MIL/uL (4.00-5.20); RED CELL DISTRIBUTION WIDTH 14.6 % (11.5-14.5); WHITE BLOOD COUNT (AUTO) 6.4 K/uL (4.5-11.0)
[2025-03-07] MEDS: SODIUM CHLORIDE 0.9% 1,000 ML IV ONE (12:14)
[2025-03-07 12:17] LABS: CALCIUM, TOTAL 9.3 mg/dL (8.8-10.5); CREATININE 1.73 mg/dL (0.60-1.30); POTASSIUM 4.5 mmol/L (3.5-5.1); PROTHROMBIN TIME 11.1 SEC (9.4-11.6)
[2025-03-07 12:23] LABS: ALBUMIN 3.1 g/dL (3.4-5.0); BILIRUBIN,TOTAL 0.3 mg/dL (0.1-1.0); TOTAL PROTEIN, SERUM 7.1 g/dL (6.4-8.2)
[2025-03-07] MEDS ORDERED: IODIXANOL 320 MG/ML 50 ML VIAL ONE ×2 (13:23)
[2025-03-07] MEDS ORDERED: ONDANSETRON HCL 4 MG/2 ML VIAL ONE (16:05)
[2025-03-07] MEDS: ONDANSETRON HCL 4 MG/2 ML VIAL IVP ONE (16:07)
== END 2025-03-07 16:35 ==
LOC: SURGERY 10:55
PROVIDERS: ATTEND Internal Medicine Gastroenterology
DX: K80.30 Calculus of bile duct with cholangitis, unspecified, without obstruction (principal); M19.90 Unspecified osteoarthritis, unspecified site; F03.90 Unspecified dementia, unspecified severity, without behavioral disturbance, psychotic disturbance, mood disturbance, and anxiety; F32.A Depression, unspecified; F25.9 Schizoaffective disorder, unspecified; I10 Essential (primary) hypertension; Z98.890 Other specified postprocedural states
CPT/HCPCS: 43264; 71045; 80053; 43275; 85025; 85610; 85730; 36415; 88300; C1769 ×2; J2704; J1100; J3010; J3490 ×4; J2405; J7030; Q9967